=== PATIENT | male | born 1945 | race Caucasian/White ===

== ENCOUNTER → 2023-10-07 07:32 | Outpatient (REF) | payer OTHER, SELFPAY ==
[2023-10-07 08:49] LABS: Glycohemoglobin (HgbA1c) 5.3 % (4.0-5.6)
[2023-10-07 08:57] LABS: ALT (SGPT) 23 U/L (0-50); AST (SGOT) 29 U/L (17-59); Alkaline Phosphatase 66 U/L (38-126); Blood Urea Nitrogen 34 mg/dl (9-20); Calcium 9.8 mg/dl (8.4-10.2); Carbon Dioxide 26 mmol/L (22-30); Chloride 109 mmol/L (98-107); Glucose 92 mg/dl (70-99); HDL Cholesterol 29 mg/dl; LDL Cholesterol, Calculated 53 mg/dl; Potassium 4.7 mmol/L (3.5-5.1); Sodium 141 mmol/L (135-145); Total Bilirubin 0.8 mg/dl (0.2-1.3); Total Cholesterol 105 mg/dl (50-199); Total Protein 6.7 g/dl (6.3-8.2); Triglyceride 118 mg/dl (10-149); Very Low Density Lipoprotein 23 mg/dl (0-30); eGFR 31.43
[2023-10-07 11:23] LABS: Free T4 1.54 ng/dl (0.78-2.19)
== END ==
LOC: REG 07:32
PROVIDERS: ATTENDING PHYSICIAN Internal Medicine
DX: I10 Essential (primary) hypertension (principal); E66.01 Morbid (severe) obesity due to excess calories; E11.22 Type 2 diabetes mellitus with diabetic chronic kidney disease; E03.9 Hypothyroidism, unspecified
CPT/HCPCS: 36415; 80053; 80061; 83036; 84439; 84443

== ENCOUNTER → 2023-12-02 11:20 | Outpatient (REF) | payer OTHER, SELFPAY ==
[2023-12-02 13:10] LABS: TSH Reflex To Free T4 0.48 uIU/ml (0.47-4.68)
== END ==
LOC: REG 11:20
PROVIDERS: ATTENDING PHYSICIAN Internal Medicine
DX: E78.2 Mixed hyperlipidemia (principal); E11.22 Type 2 diabetes mellitus with diabetic chronic kidney disease
CPT/HCPCS: 36415; 84443

== ENCOUNTER → 2024-01-13 11:57 | Outpatient (REF) | payer OTHER, SELFPAY ==
[2024-01-13 13:42] LABS: % Basophils 0.5 % (0-2); % Eosinophils 4.2 % (0-6); % Immature Granulocytes 0.3 % (0-0.5); % Lymphocytes 19.3 % (20.5-51.1); % Neutrophils 68.7 % (42.2-75.2); Absolute Eosinophils 0.3 10^3/uL (0-0.7); Absolute Lymphocytes 1.2 10^3/uL (1.2-3.4); Absolute Monocytes 0.4 10^3/uL (0.1-0.6); Absolute Neutrophils 4.1 10^3/uL (1.4-6.5); Hematocrit 32.4 % (39.0-52.0); Hemoglobin 11.1 g/dL (13.0-18.0); Mean Corp Hgb Conc. 34.3 g/dL (33.0-37.0); Mean Corpuscular Hgb 30.7 pg (27.0-31.0); Mean Corpuscular Volume 89.8 fL (80.0-94.0); Mean Platelet Volume 9.9 fL (7.4-10.4); Nucleated Red Blood Cells % 0 % (-); Platelet Count 157 10^3/uL (130-400); Red Blood Cell Count 3.61 10^6/uL (4.70-6.10); Red Cell Dist. Width 13.5 % (11.5-14.5)
[2024-01-13 14:18] LABS: ALT (SGPT) 22 U/L (0-50); AST (SGOT) 30 U/L (17-59); Albumin 4.1 g/dl (3.5-5.0); Alkaline Phosphatase 71 U/L (38-126); Blood Urea Nitrogen 37 mg/dl (9-20); Calcium 10.1 mg/dl (8.4-10.2); Carbon Dioxide 29 mmol/L (22-30); Chloride 106 mmol/L (98-107); Glucose 92 mg/dl (70-99); HDL Cholesterol 33 mg/dl; LDL Cholesterol, Calculated 58 mg/dl; Potassium 5.4 mmol/L (3.5-5.1); Sodium 140 mmol/L (135-145); Total Bilirubin 0.7 mg/dl (0.2-1.3); Total Cholesterol 107 mg/dl (50-199); Total Protein 6.6 g/dl (6.3-8.2); Triglyceride 83 mg/dl (10-149); Very Low Density Lipoprotein 16 mg/dl (0-30); eGFR 29.72
[2024-01-13 14:36] LABS: Glycohemoglobin (HgbA1c) 5.1 % (4.0-5.6)
[2024-01-13 14:46] LABS: PSA, Total - Screen 3.86 ng/ml (0.0-4.0); TSH Reflex To Free T4 0.64 uIU/ml (0.47-4.68)
== END ==
LOC: REG 11:57
PROVIDERS: ATTENDING PHYSICIAN Internal Medicine; REFERRING PHYSICIAN Internal Medicine Cardiovascular Disease
DX: I10 Essential (primary) hypertension (principal); E78.2 Mixed hyperlipidemia; E11.22 Type 2 diabetes mellitus with diabetic chronic kidney disease; Z12.5 Encounter for screening for malignant neoplasm of prostate
CPT/HCPCS: 36415; 80053; 80061; 83036; 84443; 85025; G0103

== ENCOUNTER → 2024-02-18 10:31 | Outpatient (REF) | payer OTHER, SELFPAY ==
[2024-02-18 11:40] LABS: % Basophils 0.6 % (0-2); % Eosinophils 3.8 % (0-6); % Immature Granulocytes 0.5 % (0-0.5); % Lymphocytes 16.7 % (20.5-51.1); % Monocytes 7.1 % (1.7-9.3); % Neutrophils 71.3 % (42.2-75.2); Absolute Eosinophils 0.2 10^3/uL (0-0.7); Absolute Lymphocytes 1.1 10^3/uL (1.2-3.4); Absolute Monocytes 0.5 10^3/uL (0.1-0.6); Absolute Neutrophils 4.5 10^3/uL (1.4-6.5); Hematocrit 32.6 % (39.0-52.0); Hemoglobin 10.9 g/dL (13.0-18.0); Mean Corp Hgb Conc. 33.4 g/dL (33.0-37.0); Mean Corpuscular Hgb 30.5 pg (27.0-31.0); Mean Corpuscular Volume 91.3 fL (80.0-94.0); Mean Platelet Volume 9.6 fL (7.4-10.4); Nucleated Red Blood Cells % 0 % (-); Platelet Count 155 10^3/uL (130-400); Red Blood Cell Count 3.57 10^6/uL (4.70-6.10); Red Cell Dist. Width 13.7 % (11.5-14.5); White Blood Cell Count 6.3 10^3/uL (4.8-10.8)
[2024-02-18 12:28] LABS: Iron 62 ug/dl (49-181)
[2024-02-18 12:37] LABS: Percent Saturation 21 % (20-50); Total Iron Binding Capacity 291 ug/dl (261-462)
[2024-02-18 16:38] LABS: Ferritin 61.3 ng/ml (17.9-464.0)
[2024-02-18 17:09] LABS: Folate > 20.0 ng/ml (2.76-20); Vitamin B12 959 pg/ml (239-931)
[2024-02-21 00:03] LABS: Erythropoietin (EPO) 11 mU/mL (4-27)
== END ==
LOC: REG 10:31
PROVIDERS: ATTENDING PHYSICIAN Internal Medicine
DX: N18.32 Chronic kidney disease, stage 3b (principal); D64.9 Anemia, unspecified; Z00.00 Encounter for general adult medical examination without abnormal findings
CPT/HCPCS: 36415; 82607; 82668; 82728; 82746; 83540; 83550; 85025

== ENCOUNTER → 2024-04-07 09:19 | Outpatient (REF) | payer OTHER, SELFPAY | LOC: RAD 09:19 | PROVIDERS: ATTENDING PHYSICIAN Specialist; FAMILY PHYSICIAN Internal Medicine | DX: N18.4 Chronic kidney disease, stage 4 (severe) (principal) | CPT/HCPCS: 76770 ==

== ENCOUNTER → 2024-04-12 10:36 | Outpatient (REF) | payer OTHER, SELFPAY ==
[2024-04-12 11:20] LABS: % Basophils 0.4 % (0-2); % Eosinophils 3.9 % (0-6); % Immature Granulocytes 0.4 % (0-0.5); % Monocytes 6.5 % (1.7-9.3); % Neutrophils 70.8 % (42.2-75.2); Absolute Eosinophils 0.2 10^3/uL (0-0.7); Absolute Lymphocytes 0.8 10^3/uL (1.2-3.4); Absolute Monocytes 0.3 10^3/uL (0.1-0.6); Absolute Neutrophils 3.3 10^3/uL (1.4-6.5); Hemoglobin 11.2 g/dL (13.0-18.0); Mean Corp Hgb Conc. 33.9 g/dL (33.0-37.0); Mean Corpuscular Hgb 31.9 pg (27.0-31.0); Mean Platelet Volume 9.5 fL (7.4-10.4); Nucleated Red Blood Cells % 0 % (-); Platelet Count 141 10^3/uL (130-400); Red Blood Cell Count 3.51 10^6/uL (4.70-6.10); Red Cell Dist. Width 13.4 % (11.5-14.5); White Blood Cell Count 4.6 10^3/uL (4.8-10.8)
[2024-04-12 12:03] LABS: ALT (SGPT) 29 U/L (0-50); AST (SGOT) 33 U/L (17-59); Albumin 4.1 g/dl (3.5-5.0); Alkaline Phosphatase 56 U/L (38-126); Blood Urea Nitrogen 30 mg/dl (9-20); Calcium 9.9 mg/dl (8.4-10.2); Carbon Dioxide 27 mmol/L (22-30); Chloride 107 mmol/L (98-107); Glucose 89 mg/dl (70-99); HDL Cholesterol 32 mg/dl; LDL Cholesterol, Calculated 64 mg/dl; Phosphorus 3.8 mg/dl (2.5-4.5); Potassium 4.9 mmol/L (3.5-5.1); Sodium 144 mmol/L (135-145); Total Bilirubin 0.8 mg/dl (0.2-1.3); Total Cholesterol 113 mg/dl (50-199); Total Protein 6.6 g/dl (6.3-8.2); Triglyceride 85 mg/dl (10-149); Uric Acid 7.4 mg/dl (3.5-8.5); Very Low Density Lipoprotein 17 mg/dl (0-30); eGFR 33.32
[2024-04-12 13:49] LABS: Protein/creatinine Ratio 0.1; Urine Protein 8 mg/dl
[2024-04-12 13:54] LABS: Microalbumin, Random Urine 3.4 mg/dl (0.6-1.7); Microalbumin/creatinine Ratio 33.8 mg/g
[2024-04-13 23:37] LABS: ANA, IgG Reflex to HEp-2 None Detected (None Detected)
[2024-04-14 10:32] LABS: Arsenic, Blood <10.0 ug/L (<=12.0); Lead - Venous <2.0 ug/dL (<=4.9); Mercury, Blood <2.5 ug/L (<=10.0)
[2024-04-14 15:06] LABS: Angiotensin-1-converting Enzym 42 U/L (16-85)
[2024-04-14 21:46] LABS: 24 Hour Urine Total Volume Random mL; Urine Collection Length Random hr; Urine Free Kappa Light Chains 47.13 mg/L (0.00-32.90); Urine Free Lambda Light Chains 6.12 mg/L (0.00-3.79)
== END ==
LOC: REG 10:36
PROVIDERS: ATTENDING PHYSICIAN Specialist; FAMILY PHYSICIAN Internal Medicine
DX: N18.4 Chronic kidney disease, stage 4 (severe) (principal); R78.2 Finding of cocaine in blood; I10 Essential (primary) hypertension; E11.22 Type 2 diabetes mellitus with diabetic chronic kidney disease
CPT/HCPCS: 36415; 80053; 80061; 82043; 82164; 82175; 82570; 83036; 83521; 83655; 83825; 83970; 84100; 84155; 84156; 84165; 84550; 85025; 86038; 86335

== ENCOUNTER → 2024-05-10 13:11 | Outpatient (REF) | payer OTHER, SELFPAY ==
[2024-05-10 15:18] LABS: Blood Urea Nitrogen 35 mg/dl (9-20); Calcium 9.7 mg/dl (8.4-10.2); Carbon Dioxide 28 mmol/L (22-30); Chloride 105 mmol/L (98-107); Glucose 83 mg/dl (70-99); Potassium 5.2 mmol/L (3.5-5.1); Sodium 143 mmol/L (135-145); eGFR 28.18
== END ==
LOC: REG 13:11
PROVIDERS: ATTENDING PHYSICIAN Specialist
DX: N18.4 Chronic kidney disease, stage 4 (severe) (principal)
CPT/HCPCS: 36415; 80048

== ENCOUNTER → 2024-05-23 11:09 | Outpatient (REF) | payer OTHER, SELFPAY ==
[2024-05-23 13:36] LABS: Blood Urea Nitrogen 35 mg/dl (9-20); Calcium 9.5 mg/dl (8.4-10.2); Carbon Dioxide 27 mmol/L (22-30); Chloride 108 mmol/L (98-107); Glucose 91 mg/dl (70-99); Potassium 5.2 mmol/L (3.5-5.1); Sodium 145 mmol/L (135-145); eGFR 29.72
== END ==
LOC: REG 11:09
PROVIDERS: ATTENDING PHYSICIAN Specialist; FAMILY PHYSICIAN Internal Medicine
DX: N18.32 Chronic kidney disease, stage 3b (principal); I10 Essential (primary) hypertension; E87.5 Hyperkalemia
CPT/HCPCS: 36415; 80048

== ENCOUNTER → 2024-06-27 09:25 | Outpatient (REF) | payer OTHER, SELFPAY ==
[2024-06-27 10:17] LABS: % Basophils 0.1 % (0-2); % Immature Granulocytes 0.3 % (0-0.5); % Lymphocytes 11.7 % (20.5-51.1); % Monocytes 2.7 % (1.7-9.3); % Neutrophils 85.2 % (42.2-75.2); Absolute Lymphocytes 0.8 10^3/uL (1.2-3.4); Absolute Monocytes 0.2 10^3/uL (0.1-0.6); Absolute Neutrophils 5.8 10^3/uL (1.4-6.5); Hematocrit 36.9 % (39.0-52.0); Hemoglobin 12.3 g/dL (13.0-18.0); Mean Corp Hgb Conc. 33.3 g/dL (33.0-37.0); Mean Corpuscular Hgb 30.7 pg (27.0-31.0); Mean Platelet Volume 10.2 fL (7.4-10.4); Nucleated Red Blood Cells % 0 % (-); Platelet Count 118 10^3/uL (130-400); Red Blood Cell Count 4.01 10^6/uL (4.70-6.10); Red Cell Dist. Width 14.1 % (11.5-14.5); White Blood Cell Count 6.8 10^3/uL (4.8-10.8)
[2024-06-27 10:39] LABS: ALT (SGPT) 40 U/L (0-50); AST (SGOT) 29 U/L (17-59); Albumin 3.9 g/dl (3.5-5.0); Alkaline Phosphatase 54 U/L (38-126); Blood Urea Nitrogen 41 mg/dl (9-20); Calcium 9.5 mg/dl (8.4-10.2); Carbon Dioxide 26 mmol/L (22-30); Chloride 103 mmol/L (98-107); Glucose 120 mg/dl (70-99); Potassium 5.2 mmol/L (3.5-5.1); Sodium 139 mmol/L (135-145); Total Bilirubin 0.9 mg/dl (0.2-1.3); Total Protein 6.6 g/dl (6.3-8.2); eGFR 29.54
[2024-06-27 11:06] LABS: Hepatitis B Surface Antigen Negative (Negative)
[2024-06-29 18:58] LABS: Quantiferon Mitogen minus NIL 9.99 IU/mL; Quantiferon NIL 0.01 IU/mL; Quantiferon TB Gold Plus Negative (Negative)
== END ==
LOC: REG 09:25
PROVIDERS: FAMILY PHYSICIAN Internal Medicine; OTHER PHYSICIAN Internal Medicine Cardiovascular Disease; REFERRING PHYSICIAN Specialist
DX: L12.0 Bullous pemphigoid (principal)
CPT/HCPCS: 36415; 80053; 83735; 85025; 86480; 87340

== ENCOUNTER → 2024-08-09 08:13 | Outpatient (REF) | payer BC, SELFPAY ==
[2024-08-09 09:17] LABS: % Basophils 0.3 % (0-2); % Eosinophils 0.4 % (0-6); % Lymphocytes 11.6 % (20.5-51.1); % Neutrophils 77.7 % (42.2-75.2); Absolute Immature Granulocytes 0.4 10^3/uL (0-0.05); Absolute Lymphocytes 1.1 10^3/uL (1.2-3.4); Absolute Monocytes 0.6 10^3/uL (0.1-0.6); Absolute Neutrophils 7.4 10^3/uL (1.4-6.5); Hematocrit 32.9 % (39.0-52.0); Hemoglobin 11.1 g/dL (13.0-18.0); Mean Corp Hgb Conc. 33.7 g/dL (33.0-37.0); Mean Corpuscular Hgb 31.5 pg (27.0-31.0); Mean Corpuscular Volume 93.5 fL (80.0-94.0); Mean Platelet Volume 9.8 fL (7.4-10.4); Nucleated Red Blood Cells % 0 % (-); Platelet Count 168 10^3/uL (130-400); Red Blood Cell Count 3.52 10^6/uL (4.70-6.10); White Blood Cell Count 9.5 10^3/uL (4.8-10.8)
[2024-08-09 09:52] LABS: ALT (SGPT) 23 U/L (0-50); AST (SGOT) 22 U/L (17-59); Alkaline Phosphatase 71 U/L (38-126); Blood Urea Nitrogen 42 mg/dl (9-20); Calcium 9.4 mg/dl (8.4-10.2); Carbon Dioxide 26 mmol/L (22-30); Chloride 104 mmol/L (98-107); Glucose 94 mg/dl (70-99); HDL Cholesterol 56 mg/dl; LDL Cholesterol, Calculated 82 mg/dl; Magnesium 1.9 mg/dl (1.6-2.3); Potassium 4.8 mmol/L (3.5-5.1); Sodium 141 mmol/L (135-145); Total Bilirubin 0.9 mg/dl (0.2-1.3); Total Cholesterol 153 mg/dl (50-199); Total Protein 6.2 g/dl (6.3-8.2); Triglyceride 76 mg/dl (10-149); Very Low Density Lipoprotein 15 mg/dl (0-30); eGFR 33.12
[2024-08-09 10:57] LABS: Glycohemoglobin (HgbA1c) 5.6 % (4.0-5.6)
== END ==
LOC: REG 08:13
PROVIDERS: ATTENDING PHYSICIAN Internal Medicine; REFERRING PHYSICIAN Dermatology
DX: I10 Essential (primary) hypertension (principal); E78.2 Mixed hyperlipidemia; E11.22 Type 2 diabetes mellitus with diabetic chronic kidney disease; L12.0 Bullous pemphigoid
CPT/HCPCS: 36415; 80053; 80061; 83036; 83735; 85025

== ENCOUNTER 2024-08-23 20:56 | Inpatient (IN) | payer BC, SELFPAY ==
[2024-08-23] VITALS (15 sets, daily range): BP systolic 115–175; BP diastolic 63–100
[2024-08-23 10:50] LABS: % Basophils 0.4 % (0-2); % Immature Granulocytes 0.9 % (0-0.5); % Lymphocytes 14.9 % (20.5-51.1); % Monocytes 7.1 % (1.7-9.3); % Neutrophils 72.7 % (42.2-75.2); Absolute Eosinophils 0.2 10^3/uL (0-0.7); Absolute Immature Granulocytes 0.1 10^3/uL (0-0.05); Absolute Lymphocytes 0.8 10^3/uL (1.2-3.4); Absolute Monocytes 0.4 10^3/uL (0.1-0.6); Hematocrit 32.9 % (39.0-52.0); Hemoglobin 10.9 g/dL (13.0-18.0); Mean Corp Hgb Conc. 33.1 g/dL (33.0-37.0); Mean Corpuscular Hgb 31.6 pg (27.0-31.0); Mean Corpuscular Volume 95.4 fL (80.0-94.0); Mean Platelet Volume 9.5 fL (7.4-10.4); Nucleated Red Blood Cells % 0 % (-); Platelet Count 120 10^3/uL (130-400); Red Blood Cell Count 3.45 10^6/uL (4.70-6.10); Red Cell Dist. Width 15.2 % (11.5-14.5); White Blood Cell Count 5.5 10^3/uL (4.8-10.8)
[2024-08-23 11:04] LABS: ALT (SGPT) 21 U/L (0-50); AST (SGOT) 24 U/L (17-59); Albumin 3.5 g/dl (3.5-5.0); Alkaline Phosphatase 50 U/L (38-126); Blood Urea Nitrogen 24 mg/dl (9-20); Calcium 9.5 mg/dl (8.4-10.2); Carbon Dioxide 30 mmol/L (22-30); Chloride 106 mmol/L (98-107); Glucose 92 mg/dl (70-99); Potassium 5.2 mmol/L (3.5-5.1); Sodium 140 mmol/L (135-145); Total Bilirubin 1.3 mg/dl (0.2-1.3); Total Protein 5.6 g/dl (6.3-8.2); eGFR 37.58
[2024-08-23 11:16] LABS: NT-proBNP 68.5 pg/ml; Troponin I 0.049 ng/ml
[2024-08-23] MEDS: LOW STRENGTH ASPIRIN 324 MG PO (11:17)
--- NOTE | 2024-08-23 11:25 | ED.GENMED ---
History of Present Illness
General
Chief Complaint: Chest Problem
Source: patient
Time Seen by Provider: 08/23/24 10:40
History of Present Illness
History of Present Illness:
79-year-old male with past medical history of coronary artery disease status post 7 cardiac stents, hypertension, hyperlipidemia, GERD, hypothyroidism, JEFF presenting to the emergency department for evaluation after about 1 month ago he started
experiencing intermittent exertional angina, symptoms seem to have resolved however over the last week or so symptoms seem to be more prevalent and over the last 1 to 2 days notes now with any exertion even minimally he is experiencing the chest
discomfort. Patient states that the discomfort only last for as long as he is active and then resolves after a few minutes of being sedentary. No other associated symptoms with the chest pressure. Currently at time of my exam patient is
symptom-free. Patient does note he takes both aspirin and Plavix and reports good compliance with this. Patient follows with electrocardiograph technician, Dr. Grimes.
Past History
Past History
ED Past Medical History: CAD, GERD, HTN, Hypercholesterolemia, Hypothyroidism and Other
ED Past Surgical History: Cardiac and Orthopedic
Social History
Tobacco: Non-smoker
Alcohol: None
Drug: None
Personal:
Living: with family
Employment: Employed
Family History
Family History: Other (Noncontributory)
Review of Systems
Review of Systems
All Other Systems: ROS reviewed and negative except as documented in HPI and ROS
Phy Exam
Physical Exam
Physical Exam:
GENERAL: Alert , in no apparent distress
EYE: conjunctiva clear
NECK: Supple
ENT: o/p clr, mmm.
CARDIAC: Regular rate and rhythm, systolic murmur along the left second intercostal space
LUNGS: Clear breath sounds bilaterally, no acute respiratory distress, no wheezes/rales/rhonchi
NEUROLOGICAL: Alert and oriented
SKIN: Warm and dry, skin intact.
MUSCULOSKELETAL: well perfused.
PSYCH: Normal and appropriate interaction.
Scores
Heart Failure Risk
Heart Failure Risk Score: Not Applicable
Heart Score for Chest Pain Patients
STEMI patient?: No
History: Moderately Suspicious
ECG: Nonspecific Repolarization
Age: >/= 65 years
Risk Factors: >/= 3 Risk Factors or History of CAD
Troponin: </= Normal Limit
Heart Score for Chest Pain Patients: 6
Heart Score Risk: 20.3% MACE over next 6 weeks
Withdrawal Assessment of Alcohol
Withdrawal Assessment Completed?: Not applicable
Course
Orders/Labs/Results
Orders:
Orders
08/23/24 10:06
Electrocardiogram (*1) Urgent
Reason for Study: Chest Pain
EKG- Treatment ONCE
08/23/24 10:35
Complete Blood Count/With Diff Urgent
Comprehensive Metabolic Panel Urgent
Pro-BNP [NT-proBNP] Urgent
Troponin I Urgent
08/23/24 11:05
Aspirin Chewable [Low Strength Aspirin] 324 mg PO NOW STA
08/23/24 12:[address] See Dose Instructions PO NOW STA
Discontinue all Active Warfarin orders?: Yes
Heparin Protocol- PTT Orders As Directed
PTT per Heparin protocol: -Obtain CBC and baseline PTT - if not already collected.
-Obtain PTT 6 hours from start of infusion. Then, every 6 hours until 2 consecutive
PTT's are therapeutic. Then, PTT Daily.
-With each rate change, obtain PTT every 6 hours until 2 consecutive PTT's are
therapeutic. Then, PTT Daily.
Notify MD As Directed
Notify physician if: PTT is greater than or equal to 200.
08/23/24 13:00
Heparin 10850 Units/250 ml 25,000 units in 250 ml IV PER PROTOCOL
Weight to be used for heparin protocol in kilograms (kg):: 136
Protocol:: Cardiac Tx/Acute Coronary
PTT Goal Range to be used:: PTT 73 to 111 seconds
Order type:: Initial
INITIAL Infusion Dose (UNITS/KG/hr) & then follow protocol:: 12 units/kg/hr
Infusion Dose in UNITS/hr & then follow protocol (UNITS/hr):: 1,000
INFUSION RATE in mL/hr & then follow protocol (mL/hr):: 10
PTT less than or equal to 64 seconds:: Increase rate by 200 units/hr (+ 2 mL/hr)
PTT 64.1 to 72.9 seconds:: Increase rate by 100 units/hr (+ 1 mL/hr)
PTT 73 to 111 seconds:: Target Range. No change in rate.
PTT 111.1 to 130.9 seconds:: Decrease rate by 100 units/hr (- 1 mL/hr)
PTT 131 to 199.9 seconds:: HOLD for 1 hr. Then decrease rate by 200 units/hr (- 2 mL/hr)
PTT greater than or equal to 200 seconds:: HOLD for 2 hrs & Notify Provider. Then decrease by 200 units/hr (-
2 mL/hr)
Lab follow-up:: Each change, PTT q6h until 2 consecutive are therapeutic. Then PTT
daily.
Pharmacy Request to Place See Dose Instructions IV DIRECTED
08/23/24 13:07
PTT Urgent
Comment: Obtain baseline before beginning heparin infusion if not already collected
Carvedilol [Coreg] 12.5 mg PO NOW STA
08/23/24 19:20
PTT Urgent
08/25/24 06:00
Complete Blood Count/No Diff Q2D
Comment: Notify MD if platelet count is <130,000 or decreases by 50% from baseline
08/27/24 06:00
Complete Blood Count/No Diff Q2D
Comment: Notify MD if platelet count is <130,000 or decreases by 50% from baseline
08/29/24 06:00
Complete Blood Count/No Diff Q2D
Comment: Notify MD if platelet count is <130,000 or decreases by 50% from baseline
08/31/24 06:00
Complete Blood Count/No Diff Q2D
Comment: Notify MD if platelet count is <130,000 or decreases by 50% from baseline
09/02/24 06:00
Complete Blood Count/No Diff Q2D
Comment: Notify MD if platelet count is <130,000 or decreases by 50% from baseline
09/04/24 06:00
Complete Blood Count/No Diff Q2D
Comment: Notify MD if platelet count is <130,000 or decreases by 50% from baseline
09/06/24 06:00
Complete Blood Count/No Diff Q2D
Comment: Notify MD if platelet count is <130,000 or decreases by 50% from baseline
09/08/24 06:00
Complete Blood Count/No Diff Q2D
Comment: Notify MD if platelet count is <130,000 or decreases by 50% from baseline
Abnormal Lab Results
08/23/24
10:35
RBC 3.45 L 10^6/uL
(4.70-6.10)
Hgb 10.9 L g/dL
(13.0-18.0)
Hct 32.9 L %
(39.0-52.0)
MCV 95.4 H fL
(80.0-94.0)
MCH 31.6 H pg
(27.0-31.0)
RDW 15.2 H %
(11.5-14.5)
Plt Count 120 L 10^3/uL
(130-400)
Abs Immat Gran (auto) 0.1 H 10^3/uL
(0-0.05)
Absolute Lymphs (auto) 0.8 L 10^3/uL
(1.2-3.4)
Immature Gran % 0.9 H %
(0-0.5)
Lymphocytes % 14.9 L %
(20.5-51.1)
Potassium 5.2 H mmol/L
(3.5-5.1)
BUN 24 H mg/dl
(9-20)
Creatinine 1.8 H mg/dL
(0.7-1.3)
Troponin I 0.049 H* ng/ml
Total Protein 5.6 L g/dl
(6.3-8.2)
08/23/24 10:35
08/23/24 10:35
Vital Signs
Initial and Last Documented VS:
Initial Vital Signs
Temp Pulse Resp BP Pulse Ox
98.4 F 73 18 154/93 100
08/23/24 10:06 08/23/24 10:06 08/23/24 10:06 08/23/24 10:06 08/23/24 10:06
Last Documented Vital Signs
Temp Pulse Resp BP Pulse Ox
98.4 F 68 8 149/78 98
08/23/24 10:06 08/23/24 13:45 08/23/24 13:30 08/23/24 13:17 08/23/24 13:45
MDM/Problems Addressed
Differential Diagnosis Includes:
Stable versus unstable angina, NSTEMI, currently does not meet criteria for STEMI, PE considered given recent travel however given lack of other symptoms I have more suspicion that patient's symptoms are likely cardiac in nature
MDM/Problems Addressed:
79-year-old male presented to the ER for evaluation of exertional chest pressure/discomfort for the last month or so, acutely worse over the last 1 to 2 days. Symptom-free presently. EKG done in triage is without acute ischemic changes. Labs
ordered. Plan to discuss case with cardiology for ultimate disposition planning as I have high degree of suspicion for stable angina in a patient who already has 7 cardiac stents and has significant cardiac disease. Patient advised that if he is
to develop any chest discomfort while in the ER that he needs to notify staff.
Chronic conditions affecting care: CAD
Acute Exacerbation and/or Progression of Chronic Illness: CAD
*Pulse Oximetry
Patient hypoxic: no
*EKG
Heart Rate: 68
Rate: normal
Rhythm: sinus
[place]: left axis deviation
Ischemia: no ischemia
*Groundskeeping Maintenance Worker Interpretation
Rate: normal
Rhythm: sinus
*Critical Care Note
Total Time (30-74mins, 75-104mins- exclusive of procedures): Not Applicable
Data Reviewed
Review of Other/Old Records Reveals: Labs
Source: patient
Patient Management
Discussion with other providers: Psychiatric Orderly
Escalation/DeEscalation of care consider admission/obs:
Cardiology to take patient to the [facility] today. They are ordering heparin. They will admit to their service for further treatment.
ED Attending Note
-
Portions of this chart may have been created with voice recognition software.� Occasional wrong word or��sound alike� substitutions may have occurred due to the inherent limitations of voice recognition software.
Discharge Plan
Departure
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
Date of Disposition: 08/23/24
Time of Disposition: 13:01
Presentation/result/management discussed w/ accepting MD/DO: Dr. Lauren
Discharge Problem:
Angina pectoris
Prescriptions:
No Action
pantoprazole 40 MG tablet,delayed release (DR/EC)
40 mg PO HS
atorvastatin 80 MG tablet
80 mg PO HS
sennosides [senna] 1 TABLET tablet
1 tab PO DAILYPRN PRN (Reason: constipation)
clopidogrel 75 MG tablet
75 mg PO DAILY
aspirin 81 MG tablet,delayed release (DR/EC)
81 mg PO HS
acetaminophen [Tylenol Arthritis] 650 MG tablet extended release
1,300 mg PO BID
loratadine-pseudoephedrine 240 MG/10 MG tablet extended release 24 hr
1 tab PO DAILYPRN PRN (Reason: congestion)
tamsulosin 0.4 MG capsule
0.4 mg PO BID
ezetimibe 10 MG tablet
10 mg PO HS
potassium citrate 10 MEQ tablet extended release
10 meq PO DAILY
Rx Instructions:
with meal
carvedilol 12.5 mg Tablet
12.5 mg PO BID
Theragen Tablet
1 tab PO DAILY
triamcinolone acetonide 0.1 % Cream
1 applic TOPICAL BIDPRN PRN (Reason: rash)
mycophenolate mofetil 500 mg Tablet
1,000 mg PO BID
levothyroxine 150 mcg Tablet
150 mcg PO MOTUWETHFRSA
betamethasone dipropionate 0.05 % Cream
1 applic TOPICAL BID PRN (Reason: flare up)
omega 5-efz-mbu-fish oil [Fish Oil] 60-90-500 mg Capsule
1 cap PO BID
Ozempic 1 mg/dose (4 mg/3 mL) Pen Injector
1 mg SC FUENTES
Referrals:
Micheal Aggarwal I., DO [Family Provider] -
Interventions
Interventions:
*Risk Screen - Suicide Last Done: 08/23/24 10:06
*General Assessment Last Done: 08/23/24 10:06
*Neglect/Abuse Screening Last Done: 08/23/24 10:06
ED- Fall Risk Assessment Last Done: 08/23/24 11:55
*ED COVID-19 Vaccine History Last Done: 08/23/24 11:55
ED- Cardiac Assessment Last Done: 08/23/24 11:55
ED- Pulmonary Assessment Last Done: 08/23/24 11:55
Discharge Date and Time
Print Language: HUNGARIAN
--- NOTE | 2024-08-23 12:40 | CON.CAR ---
Addendum entered and electronically signed by Roderick Lauren MD 08/23/24 14:55:
I saw and examined the patient.
The Tow Motor Mechanic's note was reviewed and I agree with the note.
Comment:
GEN: No distress, awake, Ox3
HEENT: supple, anicteric, mmm
LUNGS: CTA, no wheezes/rales
CV: Reg, S1/S2, 1/6 syst LSB, no gallop
ABD: soft, BS+, NT/ND
EXT: No edema
NEURO: Gross non-focal
SKIN: No rash
PLan:
79-year-old male well-known to me with past medical history of multivessel stenting of his OM1, and LAD presents with chest pains. His last PCI was in 2019 with a PCI of the mid circumflex into OM1. He takes chronic dual antiplatelet therapy with
aspirin and Plavix. He also has a past medical history of CKD 3, hypertension, hyperlipidemia, diabetes, and obesity. He states that over the past month he has had esculin any exertional chest tightness in the center of his chest. It radiates up
into his shoulder. Over the past several days these pains have worsened to where minimal activity caused significant chest discomfort. EKG in the emergency room revealed sinus rhythm with nonspecific T wave abnormalities. Initial troponin was
0.049. He is pain-free. He has no bleeding. He was recently diagnosed with bullous pemphigoid and was treated with intermittent steroids over the past several months.
He presents with unstable angina/non-STEMI. Start IV heparin. Continue aspirin and Plavix.
Will proceed with cardiac catheterization to evaluate his known CAD.
Continue atorvastatin, Zetia, and carvedilol.
Continue Ozempic for his diabetes.
Creatinine is overall improved at 1.8. Will continue to follow. Will attempt to limit contrast during catheterization if possible. Potassium is borderline elevated at 5.2. Continue to follow. He has had some borderline elevated potassium in the
past.
Check echocardiogram.
Original Note:
Consultation
Consultation Request
Date/Time Consultation Requested: 08/23/24
Date/Time Consultation Performed: 08/23/24
Requesting Provider: RICHARD Morse in ER
Performing Provider: Dr. Lauren
Reason for Consultation: ACS, NSTEMI
Medical History
-
History of Present Illness:
Patient came to ER today with complaints of chest pain and his initial troponin was elevated so cardiology was consulted in the ER. Patient lives about an hour away, but has had all of his previous cardiology care here at [facility] and still
insist on driving to to see his PCP and his dancing instructor. Patient says that starting 1 month ago he was on a cruise and they were on an excursion where he was carrying a backpack up a steep hill and he started with pressure in his chest that
improved with rest. When he returned home from the trip he had other episodes of higher levels of exertion causing the same chest pressure that was again relieved by rest. Concerningly however, in the last couple of days he has been having the
same chest pressure with walking on a flat surface and not associated with any heavy lifting. He called our answering service today to state that he was going to take himself to ER for an evaluation. Patient had chest pain walking from his car
to the waiting room and again walking from the waiting room to the ER room. His initial troponin was 0.049. His ECG is SR without acute ST changes. He is pain-free at rest currently.
PMH:
CAD
s/p PCI of OM1 with 2.5 x 23 mm Cypher stent and 2.8 x 8 mm Cypher stent proximal edge of initial stent, 08/22/04
s/p PCI of mid Circ to OM1 proximal segment with a 3.0 x 15 mm Xience stent for treatment of in-stent restenosis in the OM1 proximally stented area 09/16/09
s/p PCI of distal edge of OM1 with a 3.0x16 mm Promus stent, Diag-1 with a 2.5 x 16 mm Promus stent, and mid LAD with a 3.5 x 17 mm EluNIR stent 10/29/17
s/p PCI of mid Circ into the large OM1 with placement of a 3.5 x 28 mm Promus stent 11/23/19
Chronic DAPT with aspirin and Plavix
CKD 3b, baseline Cre 2.0-2.2
HTN
HLD
hypothyroidism
BPH
obesity
anemia
Past Medical History
Past Medical History: Other (in HPI)
Past Surgical History: Cardiac (s/p OM PCI 2004, OM1/LCx PCI 2009, OM/diag/mid LAD PCI 2017, OM1 x1 BENITO 11/24/19), Orthopedic and Other (thyroid radiation therapy)
Social History
Tobacco: Former Smoker
Alcohol: Occasional
Drug: None
Personal:
Living: With Family
Family History
Family History: Other (CVA)
Allergies / Home Medications
Allergy/AdvReac Type Severity Reaction Status Date / Time
celecoxib [From Celebrex] Allergy facial Verified 08/23/24 10:05
swelling
hydrocodone Allergy facial Verified 08/23/24 10:05
swelling
NSAIDS (Non-Steroidal Allergy Swelling Verified 08/23/24 10:05
Anti-Inflamma
perindopril erbumine Allergy facial Verified 08/23/24 10:05
[From Aceon] swelling
rofecoxib Allergy Patient Verified 08/23/24 10:05
unaware of
this
allergy
Salicylates * Allergy Patient Verified 08/23/24 10:05
unaware of
this
allergy
tramadol Allergy Unknown Verified 08/23/24 10:05
�Medication �Instructions �Recorded �Confirmed �Type
docosahexaenoic acid (dha)-epa 120 2,000 mg PO DAILY Supplement 09/16/09 11/23/19 History
mg-180 mg capsule
pantoprazole 40 mg tablet,delayed 40 mg PO HS Gastrointestinal issue 07/29/11 11/23/19 History
release
acetaminophen 650 mg 1,300 mg PO BID Pain 10/28/17 11/23/19 History
tablet,extended release (Tylenol
Arthritis)
aspirin 81 mg tablet,delayed 81 mg PO HS Blood clot 10/28/17 11/23/19 History
release prevention/tx
atorvastatin 80 mg tablet 80 mg PO HS High cholesterol 10/28/17 11/23/19 History
carvedilol phosphate 40 mg 40 mg PO DAILY Blood pressure 10/28/17 11/23/19 History
capsule,[id number] multiphase
clopidogrel 75 mg tablet 75 mg PO HS Blood clot 10/28/17 11/23/19 History
prevention/tx
levothyroxine 200 mcg tablet 200 mcg PO MOTUWETHFRSA@0700 10/28/17 11/23/19 History
Thyroid
loratadine-pseudoephedrine ER 10 1 tab PO DAILYPRN PRN congestion 10/28/17 11/23/19 History
mg-240 mg tablet,extended
[id number]
sennosides 8.6 mg tablet (senna) 1 tab PO DAILYPRN PRN constipation 10/28/17 11/23/19 History
tamsulosin 0.4 mg capsule 0.4 mg PO BID Urinary issue 10/28/17 11/23/19 History
B-complex with vitamin C 1 cap PO DAILY Supplement 11/23/19 11/23/19 History
ezetimibe 10 mg tablet 10 mg PO HS High cholesterol 11/23/19 11/23/19 History
multivitamin with folic acid 400 1 tab PO DAILY Supplement 11/23/19 11/23/19 History
mcg tablet (Tab-A-Johnathan)
omega 7-xle-fcu-fish oil 300 1 ea PO HS Supplement 11/23/19 11/23/19 History
mg-1,000 mg capsule (Fish Oil)
potassium citrate 10 mEq (1,080 10 meq PO BID electrolyte repletion 11/23/19 11/23/19 History
mg) tablet,extended release
Review of Systems
-
History Source: Patient and Family ()
All other systems: Negative unless noted
Physical Exam
Vital Signs
Temp Pulse Resp BP Pulse Ox
98.4 F 69 11 175/91 99
08/23/24 10:06 08/23/24 11:45 08/23/24 11:45 08/23/24 11:01 08/23/24 11:45
GEN: NAD. AAOx3
HEENT: EOMI, MMM
LUNGS: RA. CTA B/L, no wheeze
CV: SR on tele. Reg, S1/S2, no murmur
ABD: soft, BS+, NT, ND
EXT: +1 B/L LE edema to knees. No clubbing, cyanosis or lesions B/L
NEURO: Gross non-focal
SKIN: Warm, dry and pink. No rash
Lab Results
08/23/24 10:35
08/23/24 10:35
Troponin I 0.049 ng/ml H* 08/23/24 10:35
Wvd-L-Rlcfuubdjde Pept 68.5 pg/ml 08/23/24 10:35
Impression / Plan
-
Primary dancing instructor: Dr. Lauren
PCP: Micheal Aggarwal MD
Impression:
Admitted with chest pain and ACS 08/23/24
NSTEMI, initial Troponin 0.049
CAD
s/p PCI of OM1 with 2.5 x 23 mm Cypher stent and 2.8 x 8 mm Cypher stent proximal edge of initial stent, 08/22/04
s/p PCI of mid Circ to OM1 proximal segment with a 3.0 x 15 mm Xience stent for treatment of in-stent restenosis in the OM1 proximally stented area 09/16/09
s/p PCI of distal edge of OM1 with a 3.0x16 mm Promus stent, Diag-1 with a 2.5 x 16 mm Promus stent, and mid LAD with a 3.5 x 17 mm EluNIR stent 10/29/17
s/p PCI of mid Circ into the large OM1 with placement of a 3.5 x 28 mm Promus stent 11/23/19
Chronic DAPT with aspirin and Plavix
CKD 3b, baseline Cre 2.0-2.2
HTN
HLD
hypothyroidism
BPH
obesity
anemia
Echo 11/16/2019: EF 68%, mild to moderate LVH, stage I diastolic dysfunction, normal RV, mild MR
Plan:
-Patient came to ER today with complaints of chest pain and his initial troponin was elevated so cardiology was consulted in the ER. Patient lives about an hour away, but has had all of his previous cardiology care here at [facility] and still
insist on driving to to see his PCP and his dancing instructor. Patient says that starting 1 month ago he was on a cruise and they were on an excursion where he was carrying a backpack up a steep hill and he started with pressure in his chest that
improved with rest. When he returned home from the trip he had other episodes of higher levels of exertion causing the same chest pressure that was again relieved by rest. Concerningly however, in the last couple of days he has been having the
same chest pressure with walking on a flat surface and not associated with any heavy lifting. He called our answering service today to state that he was going to take himself to ER for an evaluation. Patient had chest pain walking from his car
to the waiting room and again walking from the waiting room to the ER room. His initial troponin was 0.049. His ECG is SR without acute ST changes. He is pain-free at rest currently.
-ECG reviewed by me is NSR without acute ST changes
-Initial troponin 0.049. Based on the patient's PMH, current clinical story and initial troponin of 0.049 this is likely ACS and he will be managed as an NSTEMI.
-Heparin gtt, ordered by me
-Patient took his usual doses of aspirin 81 mg daily and Plavix 75 mg daily at home this morning and reports that upon arrival to ER he was given an additional aspirin 324 mg chewable x 1
-VS reviewed and he has been HTN since arrival, last BP was 175/91. Coreg 12.5 mg x 1 now ordered by me. Patient takes Coreg CR 40 mg daily as an outpatient.
-LDL was 82 on outpatient labs 08/09/2024. Patient reports compliance with his usual dosing of atorvastatin 80 mg daily and Zetia 10 mg daily
-Patient has been using Ozempic for his DM2 and has also been managing to lose some weight. His last dose was Wednesday
[2024-08-23] MEDS: HEPARIN 25000 UNITS/250 ML IV (13:17)
[2024-08-23] MEDS: COREG 12.5 MG PO ×2 (13:17→19:32)
[2024-08-23 13:38] LABS: APTT 27.8 Sec (23.4-35.0)
[2024-08-23 16:20] LABS: ACT-LR - POC 334 Seconds (116-155)
[2024-08-23 16:41] LABS: ACT-LR - POC 253 Seconds (116-155)
[2024-08-23] MEDS: NSS 1000 IV (17:47)
--- NOTE | 2024-08-23 18:14 | ITS.CL.CATH ---
Feed Handler - Catheterization
Cardiac Catheterization
Procedure Report:
LEFT HEART CATHETERIZATION AND CORONARY INTERVENTION
Date of Procedure: August 23, 2024
Referring: Heri Lauren
PROCEDURES:
1. Left heart catheterization, coronary angiogram.
2. Ultrasound-guided access.
3. Successful percutaneous coronary artery intervention of hazy 90% mid RCA stenosis with one 3.5 x 26 mm Medtronic Michael drug-eluting stent, postdilated using IVUS guidance with a 3.5 x 15 mm NC Euphora balloon at 16 emily distally and 20 emily
proximally with an excellent angiographic and IVUS based result.
4. Intravascular ultrasound (IVUS)
INDICATION: Patient is a 79-year-old gentleman with past medical history of hypertension, hyperlipidemia, morbid obesity, CKD stage IIIb, baseline creatinine of 2.0, coronary artery disease with multiple prior stents as noted below who presents
today with NSTEMI.
Prior CAD history
s/p PCI of OM1 with 2.5 x 23 mm Cypher stent and 2.8 x 8 mm Cypher stent proximal edge of initial stent, 08/22/04
s/p PCI of mid Circ to OM1 proximal segment with a 3.0 x 15 mm Xience stent for treatment of in-stent restenosis in the OM1 proximally stented area 09/16/09
s/p PCI of distal edge of OM1 with a 3.0x16 mm Promus stent, Diag-1 with a 2.5 x 16 mm Promus stent, and mid LAD with a 3.5 x 17 mm EluNIR stent 10/29/17
s/p PCI of mid Circ into the large OM1 with placement of a 3.5 x 28 mm Promus stent 11/23/19--Chronic DAPT with aspirin and Plavix
ACCESS: Right radial artery, 6 Portuguese sheath, under ultrasound guidance.
Ultrasound was utilized for vascular access. The radial artery was visualized under ultrasound, and the vessel was patent and pulsatile. An image was stored permanently in the patient's medical record. Under direct ultrasound guidance, a 6 Portuguese
sheath was inserted into the artery using a micropuncture kit through a modified Seldinger technique.
HEMODYNAMICS : (mmHg)
AO (s/d) : 134/84
LV (s/d) : 134/12
LVEDP : 14
CORONARY FINDINGS
DOMINANCE: Right
LEFT MAIN: The left main artery is a large-caliber vessel which gives rise to the left anterior descending artery and the left circumflex artery. There is mild to moderate diffuse atherosclerotic plaque.
LEFT ANTERIOR DESCENDING: The left anterior descending artery is a medium to large caliber vessel which is rise to 2 major diagonal branches as it courses to the anterior interventricular groove and wraps around the apex.
CIRCUMFLEX: The left circumflex artery is a small to medium caliber vessel which gives rise to 1 large caliber obtuse marginal branch. Ostial left circumflex has an eccentric 40% stenosis. OM1 has had multiple prior stents which are widely patent.
Proximal LAD has diffuse 30 to 40% stenosis. Otherwise there is mild diffuse atherosclerotic plaque.
RIGHT CORONARY ARTERY: The right coronary artery is a large-caliber, dominant vessel with a high anterior takeoff which was engaged using a 6 Portuguese AL-1 diagnostic catheter. There is a hazy 90% mid RCA stenosis which is thought to be the culprit
of presenting NSTEMI and was intervened upon as noted below.
CORONARY INTERVENTION: The right coronary artery was selectively engaged using a 6 Portuguese AL-1 guide catheter. Additional heparin was given to maintain a therapeutic ACT throughout the case. A1 80 cm 0.014' run-through coronary wire for
successfully advanced into the RPDA. The mid RCA lesion was predilated using a 3.0 x 15 mm semicompliant balloon at 14 emily with good expansion. The lesion was subsequently stented using a 3.5 x 26 mm Medtronic Alta drug-eluting stent. Using IVUS
[place] eye catheter to help guide postdilatation, the stent was postdilated using a 3.5 x 15 mm NC Euphora balloon at 16 emily distally and 20 emily proximally with an excellent angiographic and IVUS based result. There is no evidence of proximal or
distal stent edge dissections with the stent appearing well apposed and well expanded. Patient tolerated the procedure well. He was reloaded with Plavix at 300 mg at the end of the case. No acute complications.
SEDATION: 52 minutes of procedural sedation was utilized. An independent neuropsychology medical consultant was present to assist with and help manage the patient's level of consciousness and physiologic status.
RADIATION SUMMARY: Fluoro Time (min): 13.1, Dose (mGy): 781.12, DAP (Gy.cm2) : 44.7
Closure Device: Vascular band over right radial artery, 10 cc of air.
CONCLUSIONS
1. Successful percutaneous coronary artery intervention of hazy 90% mid RCA stenosis with one 3.5 x 26 mm Medtronic Michael drug-eluting stent, postdilated using IVUS guidance with a 3.5 x 1518 mm NC Euphora balloon at 16 emily distally and 20 emily
proximally with an excellent angiographic and IVUS based result.
2. High Normal LVEDP at 14 mmHg
RECOMMENDATIONS
1. Uninterrupted dual antiplatelet therapy with daily baby aspirin and Plavix 75 mg along with high intensity statin and beta-dai as tolerated.
2. Wean radioman per protocol.
3. Full echocardiogram to assess biventricular function and rule out any significant valvular abnormalities.
4. Aggressive management of cardiovascular risk factors.
5. Referral for outpatient cardiac rehab.
Copy to: Heri Lauren
Myranda Cotter MD, [facility], [facility]
[2024-08-23] MEDS: CELLCEPT 1000 MG PO (19:32)
[2024-08-23] MEDS: FLOMAX 0.4 MG PO (19:33)
[2024-08-23] MEDS: PROTONIX 40 MG PO (22:20)
[2024-08-23] MEDS: LIPITOR 80 MG PO (22:20)
[2024-08-23] MEDS: TYLENOL 650 MG PO (22:20)
[2024-08-23] MEDS: ZETIA 10 MG PO (22:20)
--- NOTE | 2024-08-23 22:39 | PTCARENOTE ---
Received patient at change of shift. SR on the monitor, HR in the 70s. R radial band removed and dressing applied. Reinforced activity restrictions, pt verbalizes understanding. Pt requested PRN Tylenol, administered as per order, see MAR. Call cortes
within reach.
[2024-08-24 03:49] VITALS: BP 143/79
[2024-08-24 05:43] LABS: Hematocrit 31.2 % (39.0-52.0); Hemoglobin 10.2 g/dL (13.0-18.0); Mean Corp Hgb Conc. 32.7 g/dL (33.0-37.0); Mean Corpuscular Hgb 31.5 pg (27.0-31.0); Mean Corpuscular Volume 96.3 fL (80.0-94.0); Mean Platelet Volume 9.8 fL (7.4-10.4); Platelet Count 114 10^3/uL (130-400); Red Blood Cell Count 3.24 10^6/uL (4.70-6.10); Red Cell Dist. Width 15.2 % (11.5-14.5); White Blood Cell Count 5.5 10^3/uL (4.8-10.8)
[2024-08-24 06:04] LABS: Blood Urea Nitrogen 25 mg/dl (9-20); Carbon Dioxide 24 mmol/L (22-30); Chloride 107 mmol/L (98-107); Estimated Creatinine Clearance 52 ml/min; Glucose 71 mg/dl (70-99); HDL Cholesterol 37 mg/dl; LDL Cholesterol, Calculated 39 mg/dl; Potassium 4.5 mmol/L (3.5-5.1); Sodium 136 mmol/L (135-145); Total Cholesterol 111 mg/dl (50-199); Triglyceride 177 mg/dl (10-149); Very Low Density Lipoprotein 35 mg/dl (0-30); eGFR 40.25
--- NOTE | 2024-08-24 07:38 | W.PN.CARDCBS ---
Addendum entered and electronically signed by Disha Christianson DO 08/24/24 16:57:
I saw and examined the patient.
The Salon Shampoo Assistant's note was reviewed and I agree with the note.
Comment: Patient is seen and examined. He feels well and denies chest pain or pressure. He reports chronic lower extremity edema not on diuretics as an outpatient.
GEN: NAD. AAOx3
LUNGS: Bronchovesicular breath sounds decreased but clear
CV: Regular. Positive S1-S2. No murmurs.
ABD: soft, obese, BS+, NT, ND
EXT: +1-2 B/L LE edema to knees. Cath sites intact.
Plan:
Non-STEMI status post left heart catheterization 08/23/2024 with successful PCI to 90% mid RCA stenosis with 3.5x 26 mm Medtronic Michael drug-eluting stent with high normal LVEDP
-Patient reports symptomatic improvement following RCA PCI 08/24/24.
-He is doing well without recurrent symptoms of angina
-Echocardiogram with normal LV systolic function with no significant regional wall motion abnormalities. EF 55-60%. Mitral and aortic sclerosis. Estimated pulmonary artery pressures within normal limits.
-Chronic outpatient doses of aspirin and Plavix have been continued.
-Outpatient dose of Coreg CR 40 mg daily was changed to Coreg 12.5 mg BID due to formulary at
-LDL was 82 on outpatient labs 08/09/2024, but 39 by labs 08/24/24. Patient reports compliance with his usual dosing of atorvastatin 80 mg daily and Zetia 10 mg daily
-Given lower extremity edema we will start Lasix 20 mg Wednesday. Will repeat labs in 1 week prior to being seen in the office for follow-up.
-He may resume Ozempic; next dose this coming Wednesday
-Patient with known CKD 3B and baseline creatinine 2.0-2.2. Creatinine is 1.7 on 08/24/2024
-Discharge home today with outpatient cardiac follow-up
-Cardiac rehab initiated closer to patient's home
Original Note:
Today's Communication / Plan
-
Check another Troponin at 1100
Check echo
Likely d/c to home
Impression / Plan
-
Primary gas derrick operator: Dr. Lauren
PCP: Micheal Aggarwal MD
Impression:
Admitted with chest pain and ACS 08/23/24
NSTEMI, initial Troponin 0.049
CAD
s/p PCI of OM1 with 2.5 x 23 mm Cypher stent and 2.8 x 8 mm Cypher stent proximal edge of initial stent, 08/22/04
s/p PCI of mid Circ to OM1 proximal segment with a 3.0 x 15 mm Xience stent for treatment of in-stent restenosis in the OM1 proximally stented area 09/16/09
s/p PCI of distal edge of OM1 with a 3.0x16 mm Promus stent, Diag-1 with a 2.5 x 16 mm Promus stent, and mid LAD with a 3.5 x 17 mm EluNIR stent 10/29/17
s/p PCI of mid Circ into the large OM1 with placement of a 3.5 x 28 mm Promus stent 11/23/19
s/p PCI of mid RCA with 3.5 x 26 mm Medtronic [place] BENITO 08/24/24
Chronic DAPT with aspirin and Plavix
CKD 3b, baseline Cre 2.0-2.2
HTN
HLD
hypothyroidism
BPH
obesity
anemia
Echo 11/16/2019: EF 68%, mild to moderate LVH, stage I diastolic dysfunction, normal RV, mild MR
Echo 08/24/24: Study pending
Plan:
-Patient reports symptomatic improvement following RCA PCI 08/24/24.
-Chronic outpatient doses of aspirin and Plavix have been continued.
-Check echo
-Initial troponin 0.049 and then 0.296 on 08/24/2024 AM. Recheck Troponin at 1100.
-Outpatient dose of Coreg CR 40 mg daily was changed to Coreg 12.5 mg BID due to formulary at
-LDL was 82 on outpatient labs 08/09/2024, but odwn to 39 by labs 08/24/24. Patient reports compliance with his usual dosing of atorvastatin 80 mg daily and Zetia 10 mg daily
-Patient has been using Ozempic for his DM2 and has also been managing to lose some weight. His last dose was Wednesday
Patient with known CKD 3B and baseline creatinine 2.0-2.2. Creatinine is 1.7 on 08/24/2024
-Likely discharge to home 06/23/2025 pending echo and follow-up troponin level
HPI: Patient came to ER today with complaints of chest pain and his initial troponin was elevated so cardiology was consulted in the ER. Patient lives about an hour away, but has had all of his previous cardiology care here at [place] and
still insist on driving to to see his PCP and his gas derrick operator. Patient says that starting 1 month ago he was on a cruise and they were on an excursion where he was carrying a backpack up a steep hill and he started with pressure in his chest
that improved with rest. When he returned home from the trip he had other episodes of higher levels of exertion causing the same chest pressure that was again relieved by rest. Concerningly however, in the last couple of days he has been having
the same chest pressure with walking on a flat surface and not associated with any heavy lifting. He called our answering service today to state that he was going to take himself to ER for an evaluation. Patient had chest pain walking from his
car to the waiting room and again walking from the waiting room to the ER room. His initial troponin was 0.049. His ECG is SR without acute ST changes. He is pain-free at rest currently.
Progress Note - Billing Adjudicator
Subjective
Date of Service: August 24, 2024
He feels well, no chest pain
Objective
Labs:
08/24/24 04:04
08/24/24 04:04
Labs
Hgb 10.2 g/dL (13.0-18.0) L 08/24/24 04:04
Hct 31.2 % (39.0-52.0) L 08/24/24 04:04
Plt Count 114 10^3/uL (130-400) L 08/24/24 04:04
APTT Cancelled 08/23/24 19:20
Sodium 136 mmol/L (135-145) 08/24/24 04:04
Potassium 4.5 mmol/L (3.5-5.1) 08/24/24 04:04
BUN 25 mg/dl (9-20) H 08/24/24 04:04
Creatinine 1.7 mg/dL (0.7-1.3) H 08/24/24 04:04
Glucose 71 mg/dl (70-99) 08/24/24 04:04
Troponins
08/23/24
10:35
Troponin I 0.049 H*
Vital Signs and I&O:
Vital Signs
Temp Pulse Resp BP Pulse Ox
97.9 F 75 18 143/79 99
08/24/24 04:01 08/24/24 05:30 08/24/24 04:01 08/24/24 03:49 08/24/24 04:01
Vital Signs
Temp Pulse Resp BP Pulse Ox
97.9 F 75 18 143/79 99
08/24/24 04:01 08/24/24 05:30 08/24/24 04:01 08/24/24 03:49 08/24/24 04:01
Physical Exam
Physical Exam
GEN: NAD. AAOx3
HEENT: MMM
LUNGS: RA. No wheeze
CV: SR on tele.
ABD: soft, BS+, NT, ND
EXT: +1 B/L LE edema to knees.
NEURO: Gross non-focal
SKIN: No rash
[2024-08-24 08:04] VITALS: BP 144/91
[2024-08-24 08:06] VITALS: BP 144/91
[2024-08-24] MEDS: PLAVIX 75 MG PO (08:08)
[2024-08-24] MEDS: COREG 12.5 MG PO (08:09)
[2024-08-24] MEDS: CELLCEPT 1000 MG PO (08:10)
[2024-08-24] MEDS: FLOMAX 0.4 MG PO (08:10)
[2024-08-24 09:02] LABS: Troponin I 0.296 ng/ml
--- NOTE | 2024-08-24 09:41 | PTCARENOTE ---
Assumed care of pt from night RN. Pt received awake and alert, Ox3. VSS, CM shows NSR 70's, POX 97% on RA. Trop up to 0.296, next trop due at 1430. Pt denies any pain or discomfort at this time.
--- NOTE | 2024-08-24 10:00 | W.DS.TRANS ---
DC Summary - Change Over
-
Discharge Instructions:
Discharge Diagnosis/Procedures NSTEMI, Angioplasty with stent to RCA
Diet Low Cholesterol
Activity Other activity
Driving Restrictions No driving for 24 hours
Bathing Restrictions OK to Shower
Other Services Cardiac Rehab
Instructions:
Stand-Alone Forms: DC Instructions- Cath/EP Lab
Changes to Home Medications: No
Discharge Medications:
DC Medications w/original date entered in [employer]
pantoprazole 40 mg tablet,delayed release 40 mg PO HS Gastrointestinal issue 07/29/11
acetaminophen 650 mg tablet,extended release (Tylenol Arthritis) 1,300 mg PO BID Pain 10/28/17
aspirin 81 mg tablet,delayed release 81 mg PO HS Blood clot prevention/tx 10/28/17
atorvastatin 80 mg tablet 80 mg PO HS High cholesterol 10/28/17
clopidogrel 75 mg tablet 75 mg PO DAILY Blood clot prevention/tx 10/28/17
loratadine-pseudoephedrine ER 10 mg-240 mg tablet,extended [id number] 1 tab PO DAILYPRN PRN congestion 10/28/17
sennosides 8.6 mg tablet (senna) 1 tab PO DAILYPRN PRN constipation 10/28/17
tamsulosin 0.4 mg capsule 0.4 mg PO BID Urinary issue 10/28/17
ezetimibe 10 mg tablet 10 mg PO HS High cholesterol 11/23/19
potassium citrate 10 mEq (1,080 mg) tablet,extended release 10 meq PO DAILY electrolyte repletion 11/23/19
betamethasone dipropionate 0.05 % topical cream 1 applic topical BID PRN flare up 08/23/24
carvedilol 12.5 mg tablet 12.5 mg PO BID Blood Pressure 08/23/24
levothyroxine 150 mcg tablet 150 mcg PO MOTUWETHFRSA Thyroid 08/23/24
mycophenolate mofetil 500 mg tablet 1,000 mg PO BID Transplant 08/23/24
omega 1-dti-ixe-fish oil 60 mg-90 mg-500 mg capsule (Fish Oil) 1 cap PO BID Supplement 08/23/24
semaglutide 1 mg/dose (4 mg/3 mL) subcutaneous pen injector (Ozempic) 1 mg SC FEUNTES Diabetes 08/23/24
therapeutic multivitamin 1 tab PO DAILY Supplement 08/23/24
triamcinolone acetonide 0.1 % topical cream 1 applic topical BIDPRN PRN rash 08/23/24
Home Medication Changes
Pending Results: No
[2024-08-24 10:56] VITALS: BP 133/69
--- NOTE | 2024-08-24 11:27 | CM ---
CM following for DC planning needs.
Met w/ patient and spouse at bedside to complete initial assessment.
Pt. resides in a private, 1 story home with spouse. He is functionally indep. w/ ADLs, mobility without the use of any assisted device.
Pt. has RX plan and uses [facility] for prescription needs.
Antic. DC plan is for home, no needs.
Will follow.
[2024-08-24 12:07] LABS: Troponin I 0.294 ng/ml
[2024-08-24 15:13] LABS: Troponin I 0.315 ng/ml
[2024-08-24 15:26] VITALS: BP 109/68
--- NOTE | 2024-08-24 15:35 | W.DS.TRANS ---
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
-
Discharge Instructions:
Discharge Diagnosis/Procedures NSTEMI, Angioplasty with stent to RCA
Diet Low Cholesterol
Activity Other activity
Driving Restrictions No driving for 24 hours
Bathing Restrictions OK to Shower
Blood Work Check non-fasting blood work in 1-2 weeks
Other Services Cardiac Rehab
Instructions:
Stand-Alone Forms: DC Instructions- Cath/EP Lab
Changes to Home Medications: Yes
Discharge Medications:
DC Medications w/original date entered in [employer]
pantoprazole 40 mg tablet,delayed release 40 mg PO HS Gastrointestinal issue 07/29/11
acetaminophen 650 mg tablet,extended release (Tylenol Arthritis) 1,300 mg PO BID Pain 10/28/17
aspirin 81 mg tablet,delayed release 81 mg PO HS Blood clot prevention/tx 10/28/17
atorvastatin 80 mg tablet 80 mg PO HS High cholesterol 10/28/17
clopidogrel 75 mg tablet 75 mg PO DAILY Blood clot prevention/tx 10/28/17
loratadine-pseudoephedrine ER 10 mg-240 mg tablet,extended [id number] 1 tab PO DAILYPRN PRN congestion 10/28/17
sennosides 8.6 mg tablet (senna) 1 tab PO DAILYPRN PRN constipation 10/28/17
tamsulosin 0.4 mg capsule 0.4 mg PO BID Urinary issue 10/28/17
ezetimibe 10 mg tablet 10 mg PO HS High cholesterol 11/23/19
potassium citrate 10 mEq (1,080 mg) tablet,extended release 10 meq PO DAILY electrolyte repletion 11/23/19
betamethasone dipropionate 0.05 % topical cream 1 applic topical BID PRN flare up 08/23/24
carvedilol 12.5 mg tablet 12.5 mg PO BID Blood Pressure 08/23/24
levothyroxine 150 mcg tablet 150 mcg PO MOTUWETHFRSA Thyroid 08/23/24
mycophenolate mofetil 500 mg tablet 1,000 mg PO BID Transplant 08/23/24
omega 8-izk-mba-fish oil 60 mg-90 mg-500 mg capsule (Fish Oil) 1 cap PO BID Supplement 08/23/24
semaglutide 1 mg/dose (4 mg/3 mL) subcutaneous pen injector (Ozempic) 1 mg SC FUENTES Diabetes 08/23/24
therapeutic multivitamin 1 tab PO DAILY Supplement 08/23/24
triamcinolone acetonide 0.1 % topical cream 1 applic topical BIDPRN PRN rash 08/23/24
furosemide 20 mg tablet (Lasix) 20 mg PO MOWEFR Fluid retention/Swelling #12 tabs 08/24/24
Home Medication Changes
New to Lasix
Pending Results: No
--- NOTE | 2024-08-24 16:23 | PTCARENOTE ---
All D/C info reviewed with pt, all questions answered. Pt D/C'd home with spouse.
== END 2024-08-24 16:00 | disposition home or self-care (01) | DRG 322 ==
LOC: IVU 20:56
PROVIDERS: Internal Medicine Interventional Cardiology; Nurse Practitioner Adult Health; Physician Assistant Medical; Student in an Organized Health Care Education/Training Program; ADMITTING PHYSICIAN Internal Medicine Cardiovascular Disease; EMERGENCY PHYSICIAN Emergency Medicine; FAMILY PHYSICIAN Internal Medicine
PROC: B211YZZ Fluoroscopy of Multiple Coronary Arteries using Other Contrast (ICD-10-PCS; 2024-08-23)
PROC: 027034Z Dilation of Coronary Artery, One Artery with Drug-eluting Intraluminal Device, Percutaneous Approach (ICD-10-PCS; 2024-08-23)
PROC: 4A023N7 Measurement of Cardiac Sampling and Pressure, Left Heart, Percutaneous Approach (ICD-10-PCS; 2024-08-23)
PROC: B240ZZ3 Ultrasonography of Single Coronary Artery, Intravascular (ICD-10-PCS; 2024-08-23)
DX: I21.4 Non-ST elevation (NSTEMI) myocardial infarction (principal); I25.10 Atherosclerotic heart disease of native coronary artery without angina pectoris; I12.9 Hypertensive chronic kidney disease with stage 1 through stage 4 chronic kidney disease, or unspecified chronic kidney disease; N18.32 Chronic kidney disease, stage 3b; N40.0 Benign prostatic hyperplasia without lower urinary tract symptoms; K21.9 Gastro-esophageal reflux disease without esophagitis; E78.00 Pure hypercholesterolemia, unspecified; E11.22 Type 2 diabetes mellitus with diabetic chronic kidney disease; E66.9 Obesity, unspecified; E03.9 Hypothyroidism, unspecified; D63.1 Anemia in chronic kidney disease; Z87.891 Personal history of nicotine dependence; Z79.899 Other long term (current) drug therapy; Z79.82 Long term (current) use of aspirin; Z79.890 Hormone replacement therapy; Z68.37 Body mass index [BMI] 37.0-37.9, adult
CPT/HCPCS: 76937; 80048; 80053; 80061; 83880; 84484; 85025; 85027; 85347; 85730; 92978; 93005; 93306; 93458; 96374; 99152; 99153; 99285; C1725; C1753; C1874; C1887; C1894; C9600; Q9967

== ENCOUNTER → 2024-09-16 11:22 | Outpatient (REF) | payer BC, SELFPAY ==
[2024-09-16 12:43] LABS: NT-proBNP 40.2 pg/ml
[2024-09-16 13:37] LABS: Blood Urea Nitrogen 36 mg/dl (9-20); Calcium 9.6 mg/dl (8.4-10.2); Carbon Dioxide 27 mmol/L (22-30); Chloride 101 mmol/L (98-107); Glucose 82 mg/dl (70-99); Potassium 4.6 mmol/L (3.5-5.1); Sodium 139 mmol/L (135-145); eGFR 26.61
== END ==
LOC: REG 11:22
PROVIDERS: ATTENDING PHYSICIAN Internal Medicine Cardiovascular Disease
DX: R60.0 Localized edema (principal)
CPT/HCPCS: 36415; 80048; 83880

== ENCOUNTER → 2024-09-21 12:01 | Outpatient (REF) | payer BC, SELFPAY ==
[2024-09-21 12:42] LABS: % Basophils 0.4 % (0-2); % Eosinophils 2.9 % (0-6); % Immature Granulocytes 0.7 % (0-0.5); % Lymphocytes 14.6 % (20.5-51.1); % Monocytes 5.9 % (1.7-9.3); % Neutrophils 75.5 % (42.2-75.2); Absolute Eosinophils 0.2 10^3/uL (0-0.7); Absolute Immature Granulocytes 0.1 10^3/uL (0-0.05); Absolute Lymphocytes 1.1 10^3/uL (1.2-3.4); Absolute Monocytes 0.4 10^3/uL (0.1-0.6); Absolute Neutrophils 5.5 10^3/uL (1.4-6.5); Hematocrit 31.8 % (39.0-52.0); Hemoglobin 10.5 g/dL (13.0-18.0); Mean Corpuscular Hgb 30.8 pg (27.0-31.0); Mean Corpuscular Volume 93.3 fL (80.0-94.0); Mean Platelet Volume 9.5 fL (7.4-10.4); Nucleated Red Blood Cells % 0 % (-); Platelet Count 174 10^3/uL (130-400); Red Blood Cell Count 3.41 10^6/uL (4.70-6.10); Red Cell Dist. Width 13.8 % (11.5-14.5); White Blood Cell Count 7.3 10^3/uL (4.8-10.8)
[2024-09-21 12:56] LABS: ALT (SGPT) 17 U/L (0-50); AST (SGOT) 24 U/L (17-59); Albumin 4.1 g/dl (3.5-5.0); Alkaline Phosphatase 54 U/L (38-126); Blood Urea Nitrogen 36 mg/dl (9-20); Calcium 9.9 mg/dl (8.4-10.2); Carbon Dioxide 30 mmol/L (22-30); Chloride 107 mmol/L (98-107); Glucose 98 mg/dl (70-99); Magnesium 1.8 mg/dl (1.6-2.3); Potassium 4.8 mmol/L (3.5-5.1); Sodium 144 mmol/L (135-145); Total Protein 6.4 g/dl (6.3-8.2); eGFR 29.54
== END ==
LOC: REG 12:01
PROVIDERS: ATTENDING PHYSICIAN Dermatology; FAMILY PHYSICIAN Internal Medicine
DX: L12.0 Bullous pemphigoid (principal)
CPT/HCPCS: 36415; 80053; 83735; 85025

== ENCOUNTER → 2024-10-27 09:00 | Outpatient (REF) | payer BC, SELFPAY ==
[2024-10-27 09:37] LABS: % Basophils 0.1 % (0-2); % Eosinophils 0.1 % (0-6); % Immature Granulocytes 0.9 % (0-0.5); % Lymphocytes 7.7 % (20.5-51.1); % Neutrophils 86.2 % (42.2-75.2); Absolute Immature Granulocytes 0.1 10^3/uL (0-0.05); Absolute Lymphocytes 0.9 10^3/uL (1.2-3.4); Absolute Monocytes 0.6 10^3/uL (0.1-0.6); Absolute Neutrophils 9.6 10^3/uL (1.4-6.5); Hematocrit 25.6 % (39.0-52.0); Hemoglobin 8.6 g/dL (13.0-18.0); Mean Corp Hgb Conc. 33.6 g/dL (33.0-37.0); Mean Corpuscular Hgb 30.6 pg (27.0-31.0); Mean Corpuscular Volume 91.1 fL (80.0-94.0); Mean Platelet Volume 9.5 fL (7.4-10.4); Nucleated Red Blood Cells % 0 % (-); Platelet Count 167 10^3/uL (130-400); Red Blood Cell Count 2.81 10^6/uL (4.70-6.10); Red Cell Dist. Width 12.5 % (11.5-14.5); White Blood Cell Count 11.1 10^3/uL (4.8-10.8)
[2024-10-27 15:10] LABS: ALT (SGPT) 18 U/L (0-50); AST (SGOT) 21 U/L (17-59); Albumin 3.5 g/dl (3.5-5.0); Alkaline Phosphatase 59 U/L (38-126); Blood Urea Nitrogen 42 mg/dl (9-20); Calcium 9.7 mg/dl (8.4-10.2); Carbon Dioxide 24 mmol/L (22-30); Chloride 107 mmol/L (98-107); Glucose 98 mg/dl (70-99); Magnesium 1.2 mg/dl (1.6-2.3); Potassium 4.2 mmol/L (3.5-5.1); Sodium 143 mmol/L (135-145); Total Bilirubin 0.4 mg/dl (0.2-1.3); Total Protein 5.7 g/dl (6.3-8.2); eGFR 31.23
== END ==
LOC: REG 09:00
PROVIDERS: ATTENDING PHYSICIAN Dermatology; FAMILY PHYSICIAN Internal Medicine
DX: L12.0 Bullous pemphigoid (principal)
CPT/HCPCS: 36415; 80053; 83735; 85025

== ENCOUNTER 2024-10-27 21:54 | Inpatient (IN) | payer BC, SELFPAY ==
[2024-10-27 15:49] VITALS: BP 152/79
[2024-10-27 18:02] VITALS: BP 164/98
[2024-10-27 19:00] VITALS: BP 161/90
[2024-10-27 19:15] VITALS: BMI 37.5
[2024-10-27 19:39] LABS: NT-proBNP 256 pg/ml
[2024-10-27 19:59] LABS: Troponin I < 0.012 ng/ml
--- NOTE | 2024-10-27 20:52 | ED.GENMED ---
History of Present Illness
General
Chief Complaint: Breathing Problem
Source: patient
Exam Limitations: none
Time Seen by Provider: 10/27/24 18:31
History of Present Illness
History of Present Illness:
Patient describing progressive shortness of breath with exertion with lightheaded and near syncopal symptoms. Has been going on for weeks but much worse the last few days. No chest pain no pleuritic pain no abdominal pain no other complaints
Past History
Past History
ED Past Medical History: CAD, GERD, HTN, Hypercholesterolemia, Hypothyroidism and Other
ED Past Surgical History: Cardiac and Orthopedic
Social History
Tobacco: Non-smoker
Alcohol: None
Drug: None
Personal:
Living: with family
Employment: Employed
Family History
Family History: Other (Noncontributory)
Review of Systems
Review of Systems
All Other Systems: Not applicable
Constitutional: Denies fever or chills
Cardiac: Denies chest pain or syncope
Phy Exam
Physical Exam
Physical Exam:
GENERAL: Alert and oriented in no apparent distress
EYE: Orbits normal.
NECK: Supple
CARDIAC: Regular rate and rhythm without any obvious murmurs.
LUNGS: Clear breath sounds,normal
ABDOMEN: Soft, without focal tenderness or distention. Rectal heme-negative
NEUROLOGICAL: Alert and oriented , grossly non-focal
SKIN: Warm and dry, no rash or lesion, no discoloration, skin intact.
MUSCULOSKELETAL: Mild chronic appearing edema.
PSYCH: Normal and appropriate interaction.
Scores
Heart Failure Risk
Heart Failure Risk Score: Not Applicable
Course
Orders/Labs/Results
Orders:
Orders
10/27/24 Dinner
Cholesterol Lowering
At Your Request: Full Participation
Cholesterol Lowering: Sodium, 2 Gram
10/27/24 15:33
EKG [Electrocardiogram (*1)] Urgent
Reason for Study: Shortness of Breath
10/27/24 18:51
US Periph Venous LOWER Ext Yrn Urgent
Comment:
Reason For Exam: Shortness of breath with exertion
10/27/24 18:52
CR Chest - 2 Views Urgent
Comment:
Reason For Exam: Shortness of breath with exertion
Pulse Ox/cont/shift [RESP] Stat
Quantity: 1
10/27/24 19:08
NT-proBNP Urgent
Troponin I Urgent
10/27/24 21:42
Admit/Transfer Patient As Directed
Co-Sign Provider:
Level of Care: Inpatient admission
Assign to:: Telemetry
Physician / Group: hanh
Diagnosis: dyspnea
Reason for Telemetry: Arrhythmia
Date to Stop Telemetry: 10/30/24
Time to Stop Telemetry: 11:00
Reason for Hospitalization: dyspnea
Expected length of stay greater than two midnights?: Yes
ELOS- Estimated Length of Stay in days: 2
I certify the patient meets the requirements for IP care: Yes
Code Status As Directed
Resuscitation Status: Full Code
PRN Pain Medication Management As Directed
May give lesser potent ordered pain med per pt: Yes
preference::
Protocol:: Medication orders for pain may be administered in a
manner that supports deferring to patient preference
when the pt is:
- Requesting an ordered lesser potent pain medication.
Least to most potent pain medications are defined
as: acetaminophen < NSAID < tramadol < opioids
(morphine, oxycodone, hydromorphone).
- Requesting a lesser dose of the same medication IF
ORDERED.
- Requesting a less intrusive route of administration
if both routes are prescribed by the provider (PO <
IV).
10/27/24 22:00
Flush (0.9% Sodium Chloride) [Flush (Nss)] See Dose Instructions IV PER PROTOCOL
10/27/24 22:09
Aspirin Low Dose EC [Aspir Low (Enteric Coated)] 81 mg PO HS
Atorvastatin [Lipitor] 80 mg PO HS
Ezetimibe [Zetia] 10 mg PO HS
Pantoprazole [Protonix] 40 mg PO HS
Prednisone [Deltasone] 40 mg PO DIRECTED
Sennosides [Senokot] 8.6 mg PO DAILYPRN PRN
10/27/24 22:09
B12 [Vitamin B12] Routine
Ferritin Routine
Folate Routine
Iron Routine
TIBC [Total Iron Binding] Routine
Activity As Directed
Activity Level: As Tolerated
Orthostatic Vital Signs As Directed
Orthostatic VS Frequency: Daily
Vital Signs As Directed
Frequency: Per unit guidelines
DX Deep Vein Thrombosis Video Routine
10/27/24 23:00
Acetaminophen [Tylenol] 500 mg PO QID
10/28/24 06:00
Complete Blood Count/With Diff IN AM
Comprehensive Metabolic Panel IN AM
Levothyroxine [Synthroid] 150 mcg PO [id number]@0600
10/28/24 08:00
Carvedilol [Coreg] 12.5 mg PO BID
Clopidogrel Bisulfate [Plavix] 75 mg PO DAILY
Heparin 5,000 units SC Q12
Multivitamin [Theragran] 1 tablet PO DAILY
Potassium Citrate [Urocit-K] 10 meq PO DAILY
Tamsulosin [Flomax] 0.4 mg PO BID
betamethasone dipropionate 1 applic TOPICAL BID
omega 1-rzs-oep-fish oil [Fish Oil] 1 cap PO BID
10/30/24 08:00
Furosemide [Lasix] 20 mg PO MoWeFr@0800
10/30/24 11:00
DC Protocol for Telemetry ONCE
Vital Signs
Initial and Last Documented VS:
Initial Vital Signs
Temp Pulse Resp BP Pulse Ox
98.4 F 94 16 152/79 98
10/27/24 15:49 10/27/24 15:49 10/27/24 15:49 10/27/24 15:49 10/27/24 15:49
Last Documented Vital Signs
Temp Pulse Resp BP Pulse Ox
97.7 F 83 18 147/123 99
10/27/24 22:30 10/27/24 22:30 10/27/24 22:30 10/27/24 22:30 10/27/24 22:30
MDM/Problems Addressed
Differential Diagnosis Includes:
Patient with exertional shortness of breath lightheadedness. Stable at rest. No serious etiology found in the ER however would still have to consider cardiac related, symptomatic anemia related or PE. Which is unlikely.
*Radiology
Radiology exam reviewed: radiology read reviewed (Negative)
*Pulse Oximetry
Patient hypoxic: no
*EKG
Interpreted by ED Provider?: Yes
Interpretation: abnormal
Comparison EKG: changes noted
Heart Rate: 81
Rate: normal
Rhythm: sinus
Guys: left axis deviation
Interval: normal interval
QRS Pattern: wide non-specific
Ischemia: non-specific ST changes
*Trash Man Interpretation
Rate: normal
Interpretation: normal
Heart Rate: 80
Rhythm: sinus
*Critical Care Note
Total Time (30-74mins, 75-104mins- exclusive of procedures): Not Applicable
ED Attending Note
-
Portions of this chart may have been created with voice recognition software.� Occasional wrong word or��sound alike� substitutions may have occurred due to the inherent limitations of voice recognition software.
Discharge Plan
Departure
Patient Disposition: Admit
Date of Disposition: 10/27/24
Time of Disposition: 20:54
Presentation/result/management discussed w/ accepting MD/DO: Hospitalist
Discharge Problem:
Progressive dyspnea on exertion, Anemia
Interventions
Interventions:
*Risk Screen - Suicide Last Done: 10/27/24 15:49
*General Assessment Last Done: 10/27/24 19:15
*Neglect/Abuse Screening Last Done: 10/27/24 15:49
*ED- Fall Risk Assessment Last Done: 10/27/24 19:15
*ED COVID-19 Vaccine History Last Done: 10/27/24 19:15
*Nursing Disposition Last Done: 10/27/24 22:10
ED- Cardiac Assessment Last Done: 10/27/24 19:15
ED- Pulmonary Assessment Last Done: 10/27/24 19:15
Discharge Date and Time
Discharge Date/Time: 10/27/24 22:18
--- NOTE | 2024-10-27 21:48 | HPS.HSE ---
Family Physician
-
Family Physician: Micheal Aggarwal
Chief Complaint
-
shortness of breath
History of Present Illness
79-year-old male past medical history of NSTEMI, CAD, CKD 3B, hypertension, hyperlipidemia, hypothyroidism, BPH, obesity, anemia, bullous pemphigoid presenting with progressive shortness of breath with exertion, vertigo and lightheadedness.
Patient was admitted in July for NSTEMI status post stent and has been attending cardiac rehab since then. He was started on Lasix which is only new medication since that time he has noticed progressive shortness of breath with minimal exertion
and vertigo and lightheadedness with positional movements. His blood pressures been in the 80s systolic several times. He has come close to passing out a few times. Denies any blood in the stool or black stool. Denies any chest pain.
He has stable lower extreme edema which has not gotten worse. He denies any weight gain or weight loss. He denies asymmetric leg cramping or swelling.
He recently had diarrhea for the past 2 weeks attributed to increasing dose of CellCept which he takes for bullous pemphigoid. CellCept was stopped and diarrhea improved. He was also started on prednisone taper. He has 2 more days of 40 mg, and
then decreases by 10 mg every 3 days.
He denies any fevers or chills.
He is a former smoker. Drinks alcohol very rarely.
Medical History
Past Medical History
Past Medical History: Reports Other (NSTEMI, CAD, CKD 3B, hypertension, hyperlipidemia, hypothyroidism, BPH, obesity, anemia, bullous pemphigoid)
Past Surgical History: Reports None
Social History
Tobacco: Former Smoker
Alcohol: Occasional
Drug: None
Family History
Family History: Not pertinent
Allergies / Home Medications
Allergies reflects when Allergies were last updated in [employer].
Home Medications with original date entered in [employer]
Allergy/Medication List:
Allergies
Allergy/AdvReac Type Severity Reaction Status Date / Time
celecoxib [From Celebrex] Allergy facial Verified 10/27/24 15:49
swelling
hydrocodone Allergy facial Verified 10/27/24 15:49
swelling
NSAIDS (Non-Steroidal Allergy Swelling Verified 10/27/24 15:49
Anti-Inflamma
perindopril erbumine Allergy facial Verified 10/27/24 15:49
[From Aceon] swelling
rofecoxib Allergy Patient Verified 10/27/24 15:49
unaware of
this
allergy
Salicylates * Allergy Patient Verified 10/27/24 15:49
unaware of
this
allergy
tramadol Allergy Unknown Verified 10/27/24 15:49
Home Medications
pantoprazole 40 mg tablet,delayed release 40 mg PO HS Gastrointestinal issue 07/29/11
aspirin 81 mg tablet,delayed release 81 mg PO HS Blood clot prevention/tx 10/28/17
atorvastatin 80 mg tablet 80 mg PO HS High cholesterol 10/28/17
clopidogrel 75 mg tablet 75 mg PO DAILY Blood clot prevention/tx 10/28/17
sennosides 8.6 mg tablet (senna) 1 tab PO DAILYPRN PRN constipation 10/28/17
tamsulosin 0.4 mg capsule 0.4 mg PO BID Urinary issue 10/28/17
ezetimibe 10 mg tablet 10 mg PO HS High cholesterol 11/23/19
potassium citrate 10 mEq (1,080 mg) tablet,extended release 10 meq PO DAILY electrolyte repletion 11/23/19
betamethasone dipropionate 0.05 % topical cream 1 applic topical BID flare up 08/23/24
carvedilol 12.5 mg tablet 12.5 mg PO BID Blood Pressure 08/23/24
levothyroxine 150 mcg tablet 150 mcg PO MOTUWETHFRSA Thyroid 08/23/24
omega 2-jsl-bhy-fish oil 60 mg-90 mg-500 mg capsule (Fish Oil) 1 cap PO BID Supplement 08/23/24
semaglutide 1 mg/dose (4 mg/3 mL) subcutaneous pen injector (Ozempic) 1 mg SC FUENTES Diabetes 08/23/24
therapeutic multivitamin 1 tab PO DAILY Supplement 08/23/24
furosemide 20 mg tablet (Lasix) 20 mg PO MOWEFR Fluid retention/Swelling #12 tabs 08/24/24
acetaminophen 650 mg tablet,extended release 1,300 mg PO Q12H 10/27/24
prednisone 10 mg tablet 50 mg PO DIRECTED 10/27/24
Review of Systems
-
History Source: Patient
A 12 point ROS was completed and negative except as noted: Yes
Constitutional: Reports No Symptoms
EENT: Reports No Symptoms
Respiratory: Reports No Symptoms
Cardiac: Reports No Symptoms
Abdomen/GI: Reports No Symptoms
: Reports No Symptoms
Musculoskeletal: Reports No Symptoms
Skin: Reports No Symptoms
Neurological: Reports No Symptoms
Endocrine: Reports No Symptoms
Hematologic/Lymphatic: Reports No Symptoms
Psych: Reports No Symptoms
Physical Exam
Vital Signs
Vital Signs
Temp Pulse Resp BP Pulse Ox
98.4 F 69 14 161/90 99
10/27/24 15:49 10/27/24 21:30 10/27/24 21:30 10/27/24 19:00 10/27/24 21:30
Physical Exam
General: Well Developed, Well Nourished and No Apparent Distress
HEENT: NormoCephalic, Moist mucous membranes and Atraumatic
Respiratory: Clear
Cardiac: S1/S2 and Regular Rhythm; No Murmur or Rub
GI: Soft, Non Tender, Non Distended and Normal Bowel Sounds; No Organomegaly
Rectal: Deferred by Provider
Musculoskeletal: No Clubbing, No Cyanosis and No Edema
Skin: No Rash
Neuro: Nonfocal/grossly intact
Laboratory Results
-
Laboratory Results
Troponin I < 0.012 ng/ml 10/27/24 19:08
Data Reviewed
-
Lab Data: Labs Reviewed by me
Old Records: Reviewed
Impression/Plan
-
IMPRESSION:
PLAN:
# Progressive exertional dyspnea, lightheadedness and near syncope unclear etiology likely multifactorial secondary to orthostatic hypotension secondary to Lasix and worsening anemia
-Patient hypertensive here
- Chest x-ray shows no acute cardiopulmonary process
- Cardiac BNP 256
- Recent echocardiogram from July 2024 shows EF of 55 to 60%, LVH
- Check orthostatic vital signs
- Was considering the possibility of pulmonary embolism although not high pretest probability
- D-dimer will likely be elevated due to chronic medical conditions, consider VQ scan if further workup negative
-Difficult situation if orthostatic since resting blood pressure is elevated
- Consider cardiology for medication titration
# Worsening of chronic normocytic anemia likely secondary to CKD
-Doubt that anemia on its own should be responsible for symptoms although it could be contributing
- No bloody stool or black stool
- Check iron studies, B12 and folate
History of CAD
Recent NSTEMI status post PCI of RCA
- Continue aspirin, Plavix, statin
- Continue Coreg
Lower extremity edema
- Continue Lasix
CKD 3B
- Renal function at baseline
Essential hypertension
Hyperlipidemia
- Continue statin, Zetia
Hypothyroidism
- Continue levothyroxine
BPH
- Continue tamsulosin
Obesity
- On Ozempic
Bullous pemphigoid
- Continue prednisone taper, has 2 more days of 40 mg
- Off CellCept due to recent diarrhea which is resolved
Full code
DVT prophylaxis�heparin
Cardiac diet
[2024-10-27 22:15] VITALS: BMI 36.3
[2024-10-27 22:30] VITALS: BP 147/123
[2024-10-27] MEDS: ASPIR LOW (ENTERIC COATED) 81 MG PO (22:46)
[2024-10-27] MEDS: TYLENOL 500 MG PO (22:46)
[2024-10-27] MEDS: LIPITOR 80 MG PO (22:46)
[2024-10-27] MEDS: ZETIA 10 MG PO (22:46)
[2024-10-27] MEDS: PROTONIX 40 MG PO (22:46)
[2024-10-27] MEDS: FLOMAX 0.4 MG PO (23:38)
[2024-10-28 03:41] VITALS: BP 146/71
[2024-10-28] MEDS: SYNTHROID 150 MCG PO (05:33)
[2024-10-28 06:00] VITALS: BMI 36.1
[2024-10-28 06:59] LABS: % Basophils 0.1 % (0-2); % Eosinophils 0.1 % (0-6); % Immature Granulocytes 1.1 % (0-0.5); % Lymphocytes 9.1 % (20.5-51.1); % Monocytes 4.9 % (1.7-9.3); % Neutrophils 84.7 % (42.2-75.2); Absolute Immature Granulocytes 0.1 10^3/uL (0-0.05); Absolute Lymphocytes 0.9 10^3/uL (1.2-3.4); Absolute Monocytes 0.5 10^3/uL (0.1-0.6); Absolute Neutrophils 8.3 10^3/uL (1.4-6.5); Hemoglobin 8.4 g/dL (13.0-18.0); Mean Corp Hgb Conc. 33.6 g/dL (33.0-37.0); Mean Corpuscular Volume 89.3 fL (80.0-94.0); Mean Platelet Volume 9.6 fL (7.4-10.4); Nucleated Red Blood Cells % 0 % (-); Platelet Count 163 10^3/uL (130-400); Red Cell Dist. Width 12.5 % (11.5-14.5); White Blood Cell Count 9.8 10^3/uL (4.8-10.8)
[2024-10-28 07:05] VITALS: BP 136/68
[2024-10-28 07:29] LABS: ALT (SGPT) 19 U/L (0-50); AST (SGOT) 19 U/L (17-59); Albumin 3.3 g/dl (3.5-5.0); Alkaline Phosphatase 42 U/L (38-126); Blood Urea Nitrogen 44 mg/dl (9-20); Calcium 9.4 mg/dl (8.4-10.2); Carbon Dioxide 23 mmol/L (22-30); Chloride 109 mmol/L (98-107); Estimated Creatinine Clearance 43 ml/min; Glucose 115 mg/dl (70-99); Iron 90 ug/dl (49-181); Potassium 3.8 mmol/L (3.5-5.1); Sodium 142 mmol/L (135-145); Total Bilirubin 0.4 mg/dl (0.2-1.3); Total Protein 5.4 g/dl (6.3-8.2); eGFR 33.12
[2024-10-28 07:39] LABS: Percent Saturation 32 % (20-50); Total Iron Binding Capacity 275 ug/dl (261-462)
[2024-10-28 08:33] LABS: Folate 10.8 ng/ml (2.76-20); Vitamin B12 809 pg/ml (239-931)
[2024-10-28 09:00] VITALS: BMI 36.1
[2024-10-28] MEDS: COREG 12.5 MG PO ×2 (09:09→22:01)
[2024-10-28] MEDS: DELTASONE 40 MG PO (09:09)
[2024-10-28] MEDS: PLAVIX 75 MG PO (09:09)
[2024-10-28] MEDS: FLOMAX 0.4 MG PO ×2 (09:10→22:00)
[2024-10-28] MEDS: HEPARIN 5000 UNITS SC ×2 (09:10→22:01)
[2024-10-28] MEDS: THERAGRAN 1 TABLET PO (09:10)
[2024-10-28] MEDS: FLUOCINONIDE 0.05% CREAM 1 APPLIC TOPICAL ×2 (09:11→22:02)
[2024-10-28] MEDS: UROCIT-K 10 MEQ PO (09:12)
[2024-10-28] MEDS: TYLENOL 500 MG PO ×4 (09:13→22:01)
--- NOTE | 2024-10-28 10:01 | CON.CAR ---
Addendum entered and electronically signed by Ricky Hogan MD 10/28/24 11:51:
Patient seen, interviewed and examined by me.
Well-appearing, no acute distress
Regular rate and rhythm with normal S1 and S2, no S3 no S4. There is a grade 1/6 apical holosystolic murmur and no rubs. PMI is normally placed.
Lungs are clear to auscultation bilaterally without wheezes rales or rhonchi.
Abdomen soft nontender nondistended with normoactive bowel sounds
Extremities show trace pretibial edema bilaterally no clubbing or cyanosis.
Neurologic exam is grossly nonfocal.
Etiology of his shortness of breath is not yet clear. Has been slowly progressive over the past month and also associated with a sensation of marked generalized fatigue, even at rest.
Etiology may be multifactorial.
ECG is without change, troponin is undetectable and proBNP is not elevated. Chest x-ray is without heart failure findings. Peripheral venous ultrasound shows no DVT.
At present it does not appear that cardiac etiology is playing a major role.
He is anemic (baseline hemoglobin has been approximately 11 g/dl, 10 in July 2024 and now 8.4)
Reportedly he is heme-negative.
Recommend no changes in his cardiovascular medications at this point.
Recommend ongoing evaluation for his anemia.
Total time spent today was 80 minutes in preparing to see the patient, seeing the patient and coordination of care. This included review of recent laboratory evaluations, cardiact testing, imaging studies, primary care rtecords, specialty
consultations, hospital records, as well as personally interviewing and examining the patient, which included discussion of their tests, review/ordering medications, and communicating with other healthcare professionals and also treatment planning
as well as counseling.
Original Note:
Consultation
Consultation Request
Date/Time Consultation Requested: 10/28/2024
Date/Time Consultation Performed: 10/28/2024
Requesting Provider: Dr. Mcrae
Performing Provider: Lyly Antonio PA-C for Dr. Pete Hogan
Reason for Consultation: Dizziness, SOB
Medical History
-
History of Present Illness:
HPI: Harpreet is an 79-year-old male with past medical history of CAD with recent stenting of the RCA 07/2024, CKD 3B, hypertension, hyperlipidemia, hypothyroidism, BPH, obesity, and anemia. Presented to the [facility] ER for evaluation of worsening
shortness of breath and dizziness. He states he has chronic dizziness, but over the past few weeks he has had worsening of symptoms to the point where he has significant dizziness and shortness of breath with even walking short distances around his
house. Blood pressures have been on the low side with at home anticardiac rehab, however he has not been able to participate in cardiac rehab over the past week or so due to ongoing diarrhea. He reports diarrhea was felt to be due to his CellCept,
so this was stopped earlier this week and he was placed on steroids. Diarrhea has improved, but he continues to have dizziness and lightheadedness with position change. Denies any symptoms while at rest. He denies any chest pain. He has been
compliant with medications and other than stopping CellCept, has had no medication changes. Weight remains stable, at baseline. Reports no blood in diarrhea and has had no dark black/tarry bowel movements. In ER, was found to be anemic with
hemoglobin as low as 8.4. Chest x-ray negative for acute abnormality. Low extremity ultrasound negative for DVT. Remains in sinus rhythm by ECG with no acute ischemic changes noted. Otherwise, lab work was unremarkable. He was admitted for
further workup and evaluation.
[facility] [place]:
CAD
s/p PCI of OM1 with 2.5 x 23 mm Cypher stent and 2.8 x 8 mm Cypher stent proximal edge of initial stent, 08/22/04
s/p PCI of mid Circ to OM1 proximal segment with a 3.0 x 15 mm Xience stent for treatment of in-stent restenosis in the OM1 proximally stented area 09/16/09
s/p PCI of distal edge of OM1 with a 3.0x16 mm Promus stent, Diag-1 with a 2.5 x 16 mm Promus stent, and mid LAD with a 3.5 x 17 mm EluNIR stent 10/29/17
s/p PCI of mid Circ into the large OM1 with placement of a 3.5 x 28 mm Promus stent 11/23/19
s/p PCI of mid RCA with 3.5 x 26 mm Medtronic Michael BENITO 08/24/24
Chronic DAPT with aspirin and Plavix
CKD 3b, baseline Cre 2.0-2.2
HTN
HLD
hypothyroidism
BPH
obesity
anemia
Past Medical History
Past Medical History: Other (in HPI)
Past Surgical History: Cardiac (s/p OM PCI 2004, OM1/LCx PCI 2009, OM/diag/mid LAD PCI 2017, OM1 x1 BENITO 11/24/19), Orthopedic and Other (thyroid radiation therapy)
Social History
Tobacco: Former Smoker
Alcohol: Occasional
Drug: None
Personal:
Living: With Family
Family History
Family History: Other (CVA)
Allergies / Home Medications
Allergy/AdvReac Type Severity Reaction Status Date / Time
celecoxib [From Celebrex] Allergy facial Verified 10/27/24 15:49
swelling
hydrocodone Allergy facial Verified 10/27/24 15:49
swelling
NSAIDS (Non-Steroidal Allergy Swelling Verified 10/27/24 15:49
Anti-Inflamma
perindopril erbumine Allergy facial Verified 10/27/24 15:49
[From Aceon] swelling
rofecoxib Allergy Patient Verified 10/27/24 15:49
unaware of
this
allergy
Salicylates * Allergy Patient Verified 10/27/24 15:49
unaware of
this
allergy
tramadol Allergy Unknown Verified 10/27/24 15:49
�Medication �Instructions �Recorded �Confirmed �Type
pantoprazole 40 mg tablet,delayed 40 mg PO HS Gastrointestinal issue 07/29/11 10/27/24 History
release
aspirin 81 mg tablet,delayed 81 mg PO HS Blood clot 10/28/17 10/27/24 History
release prevention/tx
atorvastatin 80 mg tablet 80 mg PO HS High cholesterol 10/28/17 10/27/24 History
clopidogrel 75 mg tablet 75 mg PO DAILY Blood clot 10/28/17 10/27/24 History
prevention/tx
sennosides 8.6 mg tablet (senna) 1 tab PO DAILYPRN PRN constipation 10/28/17 10/27/24 History
tamsulosin 0.4 mg capsule 0.4 mg PO BID Urinary issue 10/28/17 10/27/24 History
ezetimibe 10 mg tablet 10 mg PO HS High cholesterol 11/23/19 10/27/24 History
potassium citrate 10 mEq (1,080 10 meq PO DAILY electrolyte 11/23/19 10/27/24 History
mg) tablet,extended release repletion
betamethasone dipropionate 0.05 % 1 applic topical BID flare up 08/23/24 10/27/24 History
topical cream
carvedilol 12.5 mg tablet 12.5 mg PO BID Blood Pressure 08/23/24 10/27/24 History
levothyroxine 150 mcg tablet 150 mcg PO MOTUWETHFRSA Thyroid 08/23/24 10/27/24 History
omega 4-svd-abe-fish oil 60 mg-90 1 cap PO BID Supplement 08/23/24 10/27/24 History
mg-500 mg capsule (Fish Oil)
semaglutide 1 mg/dose (4 mg/3 mL) 1 mg SC FUENTES Diabetes 08/23/24 10/27/24 History
subcutaneous pen injector (Ozempic)
therapeutic multivitamin 1 tab PO DAILY Supplement 08/23/24 10/27/24 History
furosemide 20 mg tablet (Lasix) 20 mg PO MOWEFR Fluid 08/24/24 10/27/24 Rx
retention/Swelling #12 tabs
acetaminophen 650 mg 1,300 mg PO Q12H 10/27/24 10/27/24 History
tablet,extended release
prednisone 10 mg tablet 50 mg PO DIRECTED 10/27/24 10/27/24 History
Review of Systems
-
History Source: Patient
All other systems: Negative unless noted
Physical Exam
Vital Signs
Temp Pulse Resp BP Pulse Ox
97.8 F 71 19 136/68 98
10/28/24 07:05 10/28/24 07:05 10/28/24 07:05 10/28/24 07:05 10/28/24 07:05
Lab Results
10/28/24 06:37
10/28/24 06:37
Troponin I < 0.012 ng/ml 10/27/24 19:08
Vif-K-Xklubljenat Pept 256 pg/ml 10/27/24 19:08
Physical Exam
General: Well Developed, Well Nourished and No Apparent Distress
HEENT: Normocephalic, Anicteric and Moist Mucous Membranes
Respiratory: Clear and Non Labored Respirations
Cardiac: S1/S2 and Regular Rhythm
Musculoskeletal: No Clubbing, No Cyanosis and No Edema
Skin: Warm and Dry
Neuro: AO x 3 and Nonfocal/Grossly Intact
Psych: Calm
Impression / Plan
-
PCP: Dr. Aggarwal
Shaker Out: Dr. Lauren
Impression:
Presented with dizziness, SOB
Anemia
CAD
s/p PCI of OM1 with 2.5 x 23 mm Cypher stent and 2.8 x 8 mm Cypher stent proximal edge of initial stent, 08/22/04
s/p PCI of mid Circ to OM1 proximal segment with a 3.0 x 15 mm Xience stent for treatment of in-stent restenosis in the OM1 proximally stented area 09/16/09
s/p PCI of distal edge of OM1 with a 3.0x16 mm Promus stent, Diag-1 with a 2.5 x 16 mm Promus stent, and mid LAD with a 3.5 x 17 mm EluNIR stent 10/29/17
s/p PCI of mid Circ into the large OM1 with placement of a 3.5 x 28 mm Promus stent 11/23/19
s/p PCI of mid RCA with 3.5 x 26 mm Medtronic Michael BENITO 08/24/24
Chronic DAPT with aspirin and Plavix
CKD 3b, baseline Cre 2.0-2.2
HTN
HLD
hypothyroidism
BPH
obesity
Echo 11/16/2019: EF 68%, mild to moderate LVH, stage I diastolic dysfunction, normal RV, mild MR
Echo 08/24/2024: EF 55 to 60%, grade 1 diastolic dysfunction, moderate concentric LVH, mitral sclerosis, mild MR, aortic sclerosis without stenosis, trace AR, mild TR, estimated PAP 20 to 25 mmHg
Plan:
- Presented with worsening shortness of breath and dizziness with exertion.
- Appears euvolemic. proBNP not significantly elevated. Chest x-ray without acute disease. Weight at baseline. Creatinine stable at 2.0. Continues on Lasix 20 mg MWF.
- Anemia noted on labs. Iron studies unremarkable. Patient reports heme test negative last night. Continue workup per primary service.
- No chest pain. Troponin negative x 1. EKG stable, sinus rhythm without any acute ischemic changes noted.
- Continues on aspirin and Plavix following recent PCI of the mid RCA 08/24/2024
- BP stable in hospital, however reports he has had hypotension and orthostasis at home and at cardiac rehab recently.
- Check orthostatic vital signs.
- If hypotension/orthostasis noted, would have low threshold to decrease carvedilol to 6.25 mg twice daily.
- Consider checking echo
- Continue Lipitor and Zetia
HPI: Harpreet is an 79-year-old male with past medical history of CAD with recent stenting of the RCA 07/2024, CKD 3B, hypertension, hyperlipidemia, hypothyroidism, BPH, obesity, and anemia. Presented to the [facility] ER for evaluation of worsening
shortness of breath and dizziness. He states he has chronic dizziness, but over the past few weeks he has had worsening of symptoms to the point where he has significant dizziness and shortness of breath with even walking short distances around his
house. Blood pressures have been on the low side with at home anticardiac rehab, however he has not been able to participate in cardiac rehab over the past week or so due to ongoing diarrhea. He reports diarrhea was felt to be due to his CellCept,
so this was stopped earlier this week and he was placed on steroids. Diarrhea has improved, but he continues to have dizziness and lightheadedness with position change. Denies any symptoms while at rest. He denies any chest pain. He has been
compliant with medications and other than stopping CellCept, has had no medication changes. Weight remains stable, at baseline. Reports no blood in diarrhea and has had no dark black/tarry bowel movements. In ER, was found to be anemic with
hemoglobin as low as 8.4. Chest x-ray negative for acute abnormality. Low extremity ultrasound negative for DVT. Remains in sinus rhythm by ECG with no acute ischemic changes noted. Otherwise, lab work was unremarkable. He was admitted for
further workup and evaluation.
Data Reviewed
-
EKG: Tracing Personally Visualized and interpreted
Radiology: Report Reviewed by me
Ultrasound: Report Reviewed by me
Labs: Labs Reviewed by me
Old Records: Reviewed
[2024-10-28 11:05] VITALS: BP 107/69
[2024-10-28 11:27] VITALS: BP 133/63; BP 134/81; BP 144/67; PULSE 71; PULSE 78; PULSE 81
--- NOTE | 2024-10-28 13:10 | CM ---
Patient seen at bedside.
IA completed
dx: dyspnea
PMH: NSTEMI, CAD, CKD 3B, hypertension, hyperlipidemia, hypothyroidism, BPH, obesity, anemia, bullous pemphigoid
Lives at home with in a 1 story house, 2 steps to enter
states drove self to hospital
PLOF: Independent
DME: [employer]
VN/Rehab in past states does not remember names of agencty/facility
PCP: Micheal Aggarwal
Pharmacy: [facility]
PLAN: home, currently no needs, CM to continue to follow
--- NOTE | 2024-10-28 13:58 | CON.PUL ---
Consultation
Consultation Request
Date/Time Consultation Requested: 10/28/2024 - 1239
Date/Time Consultation Performed: 10/28/2024 - 1320
Requesting Provider: Dr. Mcrae
Performing Provider: Dr. Clay
Reason for Consultation: SOB/respiratory distress
Medical History
-
Chief Complaint: SOB + dizziness
History of Present Illness:
79-year-old male former tobacco smoker with a past medical history of CAD s/p stents to OM1 (~5), and recent NSTEMI s/p BENITO to RCA (08/23/2024), chronic HFpEF, history of COVID-19 (05/2022), BPH, hypothyroidism, hypertension, hyperlipidemia, JEFF on
CPAP, GERD, nephrolithiasis, DM type II with peripheral neuropathy, CKD, and bullous pemphigoid previously on mycophenolate who presents with 'severe' dizziness and shortness of breath. Patient had contacted his PCP on 10/27/2024 due to severe
dizziness and SOB episodes x 2 the day or two prior. He said his CellCept was recently discontinued on 10/24 due to weakness + diarrhea, and he was placed onto prednisone taper but he is was unclear of the dosage. He had no chest pain or
palpitations. He denies any recent change in his diet and was reportedly well-hydrated. Of note, his diarrhea recently improved after CellCept was stopped. At the time of his admission, he was on 40 mg daily with plans to continue taper after an
additional 2 days. In the ER he was afebrile to 98.4 �F, pulse rate 94, respiratory rate 16, BP 152/79 and saturating 98% on room air. Labs showed normal WBC at 9.8, Hb 8.4, creatinine at baseline at 2, troponin negative at <0.012, and proBNP 256.
CXR showed no acute cardiopulmonary process, and lower extremity duplex showed no evidence of DVT. Due to his SOB with respiratory distress, pulmonary service now consulted for additional management/recommendations.
When I saw the patient, he was resting in bed in no acute distress. He says he currently feels good, and he is only getting short of breath with exertion/activity. No diarrhea since this past Wednesday. Currently on room air breathing comfortably.
Denies abdominal pain, nausea, red or black stool, bloody urine, fevers or chills.
Of note, he was recently hospitalized in July 2024 (08/23 - 08/24/2024) after presenting with chest pain, found to have an NSTEMI with LHC revealing a new 90% mid RCA stenosis. BENITO was placed and previous OM stents were patent. Proximal LAD had
diffuse 30-40% stenosis. He continues to follow-up with cardiology with Dr. Lauren, last visit 09/21/2024. Of note, he has a CPAP at home that he uses, and he does not have a lung doctor.
PMHx: CAD s/p multiple stents (OM1 - 2004, RCA - 08/23/2024), chronic HFpEF, Hx of Covid-19 05/2022, cataracts, obesity, BPH, hypothyroidism, hyperlipidemia, hypertension, allergic rhinitis, Hx of herniated cervical disc, JEFF on CPAP, Hx of
gastritis, Graves disease, diverticulosis, pilonidal cyst, lung nodule, IBS, GERD, osteoarthritis, cholelithiasis, nephrolithiasis, colon polyps, DM type II c/b peripheral neuropathy, CKD stage III, cervical/lumbar disc disease, bullous pemphigoid
(previously on mycophenolate)
PSHx: Right shoulder tear repair, right rotator cuff repair 08/2014, carpel tunnel right and left, s/p coronary stents, left rotator cuff repair, bilateral total knee replacements 2003, left total hip replacement, right rotator cuff repair 2002,
thyroid radiation, right hip replacement 2003, left eye cataract removal 03/2023, right eye cataract removal 04/2023, discectomy & spinal fusion C4-5, C6-7 (1999)
Past Medical History
Past Medical History: Other (Above as per HPI)
Past Surgical History: Other (Above as per HPI)
Social History
Tobacco: Former Smoker (Smoked 3 PPD X 18 years (quit at age 32))
Alcohol: Occasional (2-3 alcoholic beverages per month)
Drug: None
Personal:
Living: With Family
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
Family History
Family History: Other (Father: CVA; Mother: during childbirth)
Allergies / Home Medications
Allergies
Allergy/AdvReac Type Severity Reaction Status Date / Time
celecoxib [From Celebrex] Allergy facial Verified 10/27/24 15:49
swelling
hydrocodone Allergy facial Verified 10/27/24 15:49
swelling
NSAIDS (Non-Steroidal Allergy Swelling Verified 10/27/24 15:49
Anti-Inflamma
perindopril erbumine Allergy facial Verified 10/27/24 15:49
[From Aceon] swelling
rofecoxib Allergy Patient Verified 10/27/24 15:49
unaware of
this
allergy
Salicylates * Allergy Patient Verified 10/27/24 15:49
unaware of
this
allergy
tramadol Allergy Unknown Verified 10/27/24 15:49
Home Medications
�Medication �Instructions �Recorded �Confirmed �Last Taken �Type
pantoprazole 40 mg tablet,delayed 40 mg PO HS Gastrointestinal issue 07/29/11 10/27/24 10/26/24 History
release
aspirin 81 mg tablet,delayed 81 mg PO HS Blood clot 10/28/17 10/27/24 10/26/24 History
release prevention/tx
atorvastatin 80 mg tablet 80 mg PO HS High cholesterol 10/28/17 10/27/24 10/26/24 History
clopidogrel 75 mg tablet 75 mg PO DAILY Blood clot 10/28/17 10/27/24 10/26/24 History
prevention/tx
sennosides 8.6 mg tablet (senna) 1 tab PO DAILYPRN PRN constipation 10/28/17 10/27/24 08/20/24 History
tamsulosin 0.4 mg capsule 0.4 mg PO BID Urinary issue 10/28/17 10/27/24 10/27/24 History
ezetimibe 10 mg tablet 10 mg PO HS High cholesterol 11/23/19 10/27/24 10/26/24 History
potassium citrate 10 mEq (1,080 10 meq PO DAILY electrolyte 11/23/19 10/27/24 10/27/24 History
mg) tablet,extended release repletion
betamethasone dipropionate 0.05 % 1 applic topical BID flare up 08/23/24 10/27/24 Unknown History
topical cream
carvedilol 12.5 mg tablet 12.5 mg PO BID Blood Pressure 08/23/24 10/27/24 10/27/24 History
levothyroxine 150 mcg tablet 150 mcg PO MOTUWETHFRSA Thyroid 08/23/24 10/27/24 10/27/24 History
omega 2-fjz-stw-fish oil 60 mg-90 1 cap PO BID Supplement 08/23/24 10/27/24 10/27/24 History
mg-500 mg capsule (Fish Oil)
semaglutide 1 mg/dose (4 mg/3 mL) 1 mg SC FUENTES Diabetes 08/23/24 10/27/24 10/22/24 History
subcutaneous pen injector (Ozempic)
therapeutic multivitamin 1 tab PO DAILY Supplement 08/23/24 10/27/24 10/27/24 History
furosemide 20 mg tablet (Lasix) 20 mg PO MOWEFR Fluid 08/24/24 10/27/24 10/27/24 Rx
retention/Swelling #12 tabs
acetaminophen 650 mg 1,300 mg PO Q12H 10/27/24 10/27/24 10/27/24 History
tablet,extended release
prednisone 10 mg tablet 50 mg PO DIRECTED 10/27/24 10/27/24 10/27/24 History
40 mg
Review of Systems
-
History Source: Patient
All other systems: Negative unless noted
Vitals / Labs / Diagnostic Testing
Vital Signs
Temp Pulse Resp BP Pulse Ox
97.7 F 75 19 107/69 98
10/28/24 11:05 10/28/24 11:05 10/28/24 11:05 10/28/24 11:05 10/28/24 11:05
Lab Data
10/28/24 06:37
10/28/24 06:37
Diagnostic Testing:
Physical Exam
-
HEENT: Normocephalic, Anicteric and Other (Thick neck)
Cardiovascular: S1/S2, Rub (negative) and Peripheral Edema (Trace lower extremity edema bilaterally)
Respiratory: Clear, Wheeze (negative), Rales (negative), Rhonchi (negative) and Non-Labored Respirations
GI: Soft, Distended (Abdominal obesity), Non Tender and Normal Bowel Sounds
Neurology: AO x 3 and Tremors (negative)
Skin: Warm and Dry
General: Respiratory Distress (negative), Comfortable, Chills (negative) and Sweats (negative)
Assessment
-
Assessment: 79-year-old male former tobacco smoker with a past medical history of CAD s/p stents to OM1 (~5), and recent NSTEMI s/p EBNITO to RCA (08/23/2024), chronic HFpEF, history of COVID-19 (05/2022), BPH, hypothyroidism, hypertension,
hyperlipidemia, JEFF, GERD, nephrolithiasis, DM type II with peripheral neuropathy, CKD, and bullous pemphigoid previously on mycophenolate who presents with 'severe' dizziness and shortness of breath. Patient had contacted his PCP on 10/27/2024 due
to severe dizziness and SOB episodes x 2 the day or two prior. He said his CellCept was recently discontinued on 10/24 due to weakness + diarrhea, and he was placed onto prednisone taper but he is was unclear of the dosage. He had no chest pain or
palpitations. He denies any recent change in his diet and was reportedly well-hydrated. Of note, his diarrhea recently improved after CellCept was stopped. At the time of his admission, he was on 40 mg daily with plans to continue taper after an
additional 2 days. In the ER he was afebrile to 98.4 �F, pulse rate 94, respiratory rate 16, BP 152/79 and saturating 98% on room air. Labs showed normal WBC at 9.8, Hb 8.4, creatinine at baseline at 2, troponin negative at <0.012, and proBNP 256.
CXR showed no acute cardiopulmonary process, and lower extremity duplex showed no evidence of DVT. Due to his SOB with respiratory distress, pulmonary service now consulted for additional management/recommendations.
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
gastritis, Graves disease, diverticulosis, pilonidal cyst, lung nodule, IBS, GERD, osteoarthritis, cholelithiasis, nephrolithiasis, colon polyps, DM type II c/b peripheral neuropathy, CKD stage III, cervical/lumbar disc disease, bullous pemphigoid
(previously on mycophenolate)
Impression:
#Dizziness/?vertigo with SOB prior to arrival
#Acute on chronic anemia (baseline Hb 10.5�12g/dL)
#CKD (baseline creatinine 2�2.2)
#Recent NSTEMI with hazy 90% mid RCA stenosis s/p PCI with BENITO placement
#Chronic HFpEF (not in an acute exacerbation currently)
#History of COVID-19 (May 2022)
#JEFF on CPAP
#Bullous pemphigoid previously on mycophenolate, currently on prednisone taper started ALARM INVESTIGATOR
#Hypothyroidism
#Obesity currently on Ozempic
#BPH
# Former tobacco smoker � smoked 3 PPD X 18 years (quit at age 32)
Plan:
- Unclear cause of his dizziness + SOB episodes; mycophenolate is associated with a 34% chance of dizziness and a 31-44% chance of dyspnea, and even though he recently stopped this medication, the half-life is increased given his CKD
- It is interesting though that he has never had the symptoms before while being on mycophenolate
- In terms of serious conditions that can cause his symptoms, his troponin is negative, his CXR shows no evidence of pneumonia, no pneumothorax, no significant atelectasis, and he remains on room air saturating 98%. Very low index of suspicion for
an acute PE given that he is not tachycardic nor hypoxic - regardless, VQ scan is pending and we will follow this up
- The only thing that I see that can cause his fatigue with SOB is he is slightly anemic, more so than his baseline --> would consult GI to evaluate him for colonoscopy
- Continue to maintain SpO2 >90-94% with supplemental O2 as needed
- prn nebulized bronchodilators - not currently bronchospastic
- Incentive spirometer encouraged q1hr while awake
- PT/OT recommended
- Cardiology consulted, and symptoms of SOB/fatigue does not appear cardiac related
- Given his recent stent, need to continue ASA + Plavix; continue with high intensity Lipitor
- There have been reports of significant fatigue with patients who take Plavix; defer changing to Brilinta to cardiology while we await evaluate further for this possible GI source of anemia
- Replete electrolytes with K>4, Mg>2
- Trend H/H and transfuse if needed to keep Hb>7g/dL; keep plt>20k, unless there is concern for bleeding then keep plt>50k
- Maintain euglycemia with goal BG >100 and <180
- DVT ppx: Would consider holding heparin subcu for now while we workup his anemia further
Pulmonary service will continue to briefly follow along. Outpatient pulmonary office follow-up will be arranged for full PFTs and symptom management/monitoring. Of note, given that he quit smoking >15 years ago, he does not qualify for lung cancer
screening.
Data:
CXR 10/27/2024: No acute cardiopulmonary process.
TTE 08/24/2024:
Normal left ventricular systolic function with moderate left concentric
ventricular hypertrophy
Left ventricular ejection fraction by volumetric assessment 55-60%
Grade 1 diastolic dysfunction with elevated left atrial filling pressures
Dilated left atrium
Mitral sclerosis with mild mitral regurgitation
Trileaflet, sclerotic aortic valve without significant stenosis and trace
aortic regurgitation
Mild tricuspid regurgitation
Estimated pulmonary artery pressure of 20-25 mmHg assuming a right atrial
pressure of 3 mmHg.
No pericardial effusion.
Normal aortic root and proximal ascending aorta by BSA. Sinus of Valsalva 3.5
cm, sinotubular junction 3.4 cm, proximal ascending aorta 3.5 cm.
Compared to prior study dated 11/16/2019, mitral and aortic valves are now
sclerotic
Total time spent today was 59 minutes for this encounter. Time includes reviewing laboratory test/imaging results, reviewing pertinent medical records, obtaining and reviewing medical history, performing an appropriate exam, ordering medications,
tests and procedures. Time also includes documentation of this encounter, coordinating patient care and communicating with other healthcare professionals. Total time does not include separately billed tests performed on this date of service.
[2024-10-28 15:05] VITALS: BP 111/71
--- NOTE | 2024-10-28 17:18 | W.PN.HOSP.TC ---
Today's Communication/Plan
-
will check stool for OB, retic ct, Haptoglobin, LDH and the VQ scan
Assessment / Plan
Assessment / Plan
# Progressive exertional dyspnea, lightheadedness and near syncope unclear etiology likely multifactorial secondary to orthostatic hypotension secondary to Lasix and worsening anemia
-Patient hypertensive here
- Chest x-ray shows no acute cardiopulmonary process
- Cardiac BNP 256
- Recent echocardiogram from July 2024 shows EF of 55 to 60%, LVH
- Check orthostatic vital signs
- Was considering the possibility of pulmonary embolism although not high pretest probability
- D-dimer will likely be elevated due to chronic medical conditions, will do VQ scan, unlikely, but will need to be ruled out
-Difficult situation if orthostatic since resting blood pressure is elevated
- cardiology consult noted, does not believe dyspnea is cardiac related
# Worsening of chronic normocytic anemia likely secondary to CKD
-Doubt that anemia on its own should be responsible for symptoms although it could be contributing
- No bloody stool or black stool, will recheck
Hgb now 8.4
- iron studies Fe sat 32%, Ferritin 134, B12 809 and folate 10.8
History of CAD
Recent NSTEMI status post PCI of RCA 08/23/24
- Continue aspirin, Plavix, statin
- Continue Coreg
Lower extremity edema
- Continue Lasix
CKD 3B
- Renal function at baseline
Essential hypertension
Hyperlipidemia
- Continue statin, Zetia
Hypothyroidism
- Continue levothyroxine
BPH
- Continue tamsulosin
Obesity
- On Ozempic
Bullous pemphigoid
- Continue prednisone taper, has 2 more days of 40 mg
- Off CellCept due to recent diarrhea which is resolved
will check stool for OB, retic ct, Haptoglobin, LDH and the VQ scan
discussed with Dr. Quintero, he would like the above lab studies and will need follow up in office, probable outpt Bone Marrow
Full code
DVT prophylaxis�heparin
Cardiac diet
Anticipated Discharge: 24 - 48 hours
Subjective/Interval History
-
Date of Service: October 28, 2024
Shortness of Breath
Objective Data
-
Labs:
Laboratory Results
10/28/24
06:37
WBC 9.8
Hgb 8.4 L
Hct 25.0 L
Plt Count 163
Sodium 142
Potassium 3.8
Chloride 109 H
Carbon Dioxide 23
BUN 44 H
Creatinine 2.0 H
Glucose 115 H
Calcium 9.4
Total Bilirubin 0.4
AST 19
ALT 19
Alkaline Phosphatase 42
Vital Signs:
Vital Signs
Temp Pulse Resp BP Pulse Ox
97.6 F 78 18 111/71 97
10/28/24 15:05 10/28/24 15:05 10/28/24 15:05 10/28/24 15:05 10/28/24 15:05
I&O
10/27/24 10/28/24 10/29/24
06:59 06:59 06:59
Intake Total 1380 / 1380
Balance 1380 / 1380
Review of Systems
-
History Source: Patient and Coordinated Provider
Constitutional: Reports No Symptoms; Denies Fever
EENT: Reports No Symptoms Reported
Respiratory: Reports Trouble Breathing
Cardiac: Denies Chest Pain
Abdomen/GI: Reports No Symptoms
Genitourinary: Reports No Symptoms
Musculoskeletal: Reports No Symptoms
Physical Exam
-
General: Well Developed, Well Nourished and No Apparent Distress
HEENT: Normocephalic, Atraumatic and Moist Mucous Membranes
Respiratory: Clear to Auscultation; Negative Wheezes, Rales or Rhonchi
Cardiac: Regular Rhythm, S1/S2 and Murmur (1/6 apical m)
GI: Soft, Nontender and Nondistended
Musculoskeletal: No Clubbing, No Cyanosis and No Edema
[2024-10-28] MEDS: PROTONIX 40 MG PO (22:00)
[2024-10-28] MEDS: LIPITOR 80 MG PO (22:00)
[2024-10-28] MEDS: ZETIA 10 MG PO (22:00)
[2024-10-28] MEDS: ASPIR LOW (ENTERIC COATED) 81 MG PO (22:01)
[2024-10-28 23:00] VITALS: BP 149/79
[2024-10-29 03:00] VITALS: BP 160/80
[2024-10-29 06:00] VITALS: BMI 36.1
[2024-10-29 07:10] VITALS: BP 153/86
[2024-10-29 07:27] LABS: Blood Urea Nitrogen 45 mg/dl (9-20); Estimated Creatinine Clearance 51 ml/min; Glucose 103 mg/dl (70-99)
[2024-10-29 07:28] LABS: Calcium 9.7 mg/dl (8.4-10.2); Carbon Dioxide 24 mmol/L (22-30); Chloride 108 mmol/L (98-107); LDH 174 U/L (120-246); Potassium 3.9 mmol/L (3.5-5.1); Sodium 142 mmol/L (135-145); eGFR 40.25
[2024-10-29 08:04] LABS: % Basophils 0.2 % (0-2); % Eosinophils 0.2 % (0-6); % Immature Granulocytes 2.5 % (0-0.5); % Lymphocytes 8.9 % (20.5-51.1); % Monocytes 5.5 % (1.7-9.3); % Neutrophils 82.7 % (42.2-75.2); Absolute Immature Granulocytes 0.2 10^3/uL (0-0.05); Absolute Lymphocytes 0.8 10^3/uL (1.2-3.4); Absolute Monocytes 0.5 10^3/uL (0.1-0.6); Absolute Neutrophils 7.6 10^3/uL (1.4-6.5); Hematocrit 25.7 % (39.0-52.0); Hemoglobin 8.7 g/dL (13.0-18.0); Mean Corp Hgb Conc. 33.9 g/dL (33.0-37.0); Mean Corpuscular Hgb 30.4 pg (27.0-31.0); Mean Corpuscular Volume 89.9 fL (80.0-94.0); Mean Platelet Volume 9.9 fL (7.4-10.4); Nucleated Red Blood Cells % 0 % (-); Platelet Count 169 10^3/uL (130-400); Red Blood Cell Count 2.86 10^6/uL (4.70-6.10); Red Cell Dist. Width 12.4 % (11.5-14.5); Reticulocyte Count 1.8 % (0.4-2.8); White Blood Cell Count 9.1 10^3/uL (4.8-10.8)
[2024-10-29] MEDS: COREG 12.5 MG PO (08:30)
[2024-10-29] MEDS: PLAVIX 75 MG PO (08:30)
[2024-10-29] MEDS: FLOMAX 0.4 MG PO (08:30)
[2024-10-29] MEDS: DELTASONE 40 MG PO (08:30)
[2024-10-29] MEDS: THERAGRAN 1 TABLET PO (08:30)
[2024-10-29] MEDS: UROCIT-K 10 MEQ PO (08:30)
[2024-10-29] MEDS: HEPARIN 5000 UNITS SC (08:31)
[2024-10-29] MEDS: FLUOCINONIDE 0.05% CREAM 1 APPLIC TOPICAL (08:32)
[2024-10-29] MEDS: TYLENOL 500 MG PO ×2 (08:32→13:04)
--- NOTE | 2024-10-29 10:23 | W.PN.CARDCBS ---
Today's Communication / Plan
-
Doubt significant acute cardiac component to his current presentation.
Will sign off, please call us back if we can be of further assistance
Impression / Plan
-
PCP: Dr. Aggarwal
First Aid Attendant: Dr. Lauren
Impression:
Presented with dizziness, SOB
Anemia
CAD
s/p PCI of OM1 with 2.5 x 23 mm Cypher stent and 2.8 x 8 mm Cypher stent proximal edge of initial stent, 08/22/04
s/p PCI of mid Circ to OM1 proximal segment with a 3.0 x 15 mm Xience stent for treatment of in-stent restenosis in the OM1 proximally stented area 09/16/09
s/p PCI of distal edge of OM1 with a 3.0x16 mm Promus stent, Diag-1 with a 2.5 x 16 mm Promus stent, and mid LAD with a 3.5 x 17 mm EluNIR stent 10/29/17
s/p PCI of mid Circ into the large OM1 with placement of a 3.5 x 28 mm Promus stent 11/23/19
s/p PCI of mid RCA with 3.5 x 26 mm Medtronic Michael BENITO 08/24/24
Chronic DAPT with aspirin and Plavix
CKD 3b, baseline Cre 2.0-2.2
HTN
HLD
hypothyroidism
BPH
obesity
Echo 11/16/2019: EF 68%, mild to moderate LVH, stage I diastolic dysfunction, normal RV, mild MR
Echo 08/24/2024: EF 55 to 60%, grade 1 diastolic dysfunction, moderate concentric LVH, mitral sclerosis, mild MR, aortic sclerosis without stenosis, trace AR, mild TR, estimated PAP 20 to 25 mmHg
Plan:
Presented with worsening shortness of breath and dizziness with exertion.
Etiology of his shortness of breath is not yet clear. Has been slowly progressive over the past month and also associated with a sensation of marked generalized fatigue, even at rest.
Etiology may be multifactorial. It does not appear that heart failure or unstable coronary syndrome is playing a role
It does not appear that heart failure or unstable coronary syndrome is playing a role
ECG is without change, troponin is undetectable and proBNP is not elevated. Chest x-ray is without heart failure findings. Peripheral venous ultrasound shows no DVT.
Euvolemic by exam
At present it does not appear that cardiac etiology is playing a major role.
Progressive anemia (baseline hemoglobin has been approximately 11 g/dl, 10 in July 2024 and now 8.4). Reportedly he is heme-negative.
recommend ongoing evaluation for his anemia.
Iron studies unremarkable, MCV normal. Patient reports heme test negative last night.
He did mention some dizziness at home and at cardiac rehab recently
orthostatic vital signs find that he is not orthostatic.
Okay to treat hypertension
Coronary artery disease history as noted, currently unlikely that he has unstable coronary syndrome.
Continue aspirin and Plavix following recent PCI of the mid RCA 08/24/2024 (while anemic, reportedly he is heme-negative, MCV normal and iron studies show he is not iron deficient)
Continue Lipitor and Zetia
Will sign off, please call us back if we can be of any further assistance
-
HPI: Harpreet is an 79-year-old male with past medical history of CAD with recent stenting of the RCA 07/2024, CKD 3B, hypertension, hyperlipidemia, hypothyroidism, BPH, obesity, and anemia. Presented to the [facility] ER for evaluation of worsening
shortness of breath and dizziness. He states he has chronic dizziness, but over the past few weeks he has had worsening of symptoms to the point where he has significant dizziness and shortness of breath with even walking short distances around his
house. Blood pressures have been on the low side with at home anticardiac rehab, however he has not been able to participate in cardiac rehab over the past week or so due to ongoing diarrhea. He reports diarrhea was felt to be due to his CellCept,
so this was stopped earlier this week and he was placed on steroids. Diarrhea has improved, but he continues to have dizziness and lightheadedness with position change. Denies any symptoms while at rest. He denies any chest pain. He has been
compliant with medications and other than stopping CellCept, has had no medication changes. Weight remains stable, at baseline. Reports no blood in diarrhea and has had no dark black/tarry bowel movements. In ER, was found to be anemic with
hemoglobin as low as 8.4. Chest x-ray negative for acute abnormality. Low extremity ultrasound negative for DVT. Remains in sinus rhythm by ECG with no acute ischemic changes noted. Otherwise, lab work was unremarkable. He was admitted for
further workup and evaluation.
Progress Note - First Aid Attendant
Subjective
Date of Service: October 29, 2024
Patient is off the floor at present
Objective
Labs:
10/29/24 06:07
10/29/24 06:07
Labs
Hgb 8.7 g/dL (13.0-18.0) L 10/29/24 06:07
Hct 25.7 % (39.0-52.0) L 10/29/24 06:07
Plt Count 169 10^3/uL (130-400) 10/29/24 06:07
Sodium 142 mmol/L (135-145) 10/29/24 06:07
Potassium 3.9 mmol/L (3.5-5.1) 10/29/24 06:07
BUN 45 mg/dl (9-20) H 10/29/24 06:07
Creatinine 1.7 mg/dL (0.7-1.3) H 10/29/24 06:07
Glucose 103 mg/dl (70-99) H 10/29/24 06:07
Troponins
10/27/24
19:08
Troponin I < 0.012
Vital Signs and I&O:
Vital Signs
Temp Pulse Resp BP Pulse Ox
97.9 F 68 16 153/86 99
10/29/24 07:10 10/29/24 08:30 10/29/24 07:10 10/29/24 08:30 10/29/24 07:10
Vital Signs
Temp Pulse Resp BP Pulse Ox
97.9 F 68 16 153/86 99
10/29/24 07:10 10/29/24 08:30 10/29/24 07:10 10/29/24 08:30 10/29/24 07:10
Intake & Output
10/27/24 10/28/24 10/29/24 10/30/24
06:59 06:59 06:59 06:59
Intake Total 1380 / 1380
Balance 1380 / 1380
Physical Exam
Physical Exam
Patient is off the floor at present
[2024-10-29 11:55] VITALS: BP 161/83
--- NOTE | 2024-10-29 13:20 | W.PN.PUL3 ---
Today's Communication / Plan
-
Recommend outpatient GI evaluation
OOB as tolerated
Continue DAPT with Plavix + ASA
If he does eventually get a EGD +/- colonoscopy then no source of anemia is found, can consider changing Plavix to Brilinta as there have been reports of Plavix causing fatigue
Patient is being prepared for discharge home today. No additional recommendations at this time. Pulmonary service will now sign off. Outpatient pulmonary office follow-up will be arranged. Please reconsult if there are any additional
questions/concerns, or if patient's respiratory status deteriorates.
Assessment
-
Assessment: 79-year-old male former tobacco smoker with a past medical history of CAD s/p stents to OM1 (~5), and recent NSTEMI s/p BENITO to RCA (08/23/2024), chronic HFpEF, history of COVID-19 (05/2022), BPH, hypothyroidism, hypertension,
hyperlipidemia, JEFF, GERD, nephrolithiasis, DM type II with peripheral neuropathy, CKD, and bullous pemphigoid previously on mycophenolate who presents with 'severe' dizziness and shortness of breath. Patient had contacted his PCP on 10/27/2024 due
to severe dizziness and SOB episodes x 2 the day or two prior. He said his CellCept was recently discontinued on 10/24 due to weakness + diarrhea, and he was placed onto prednisone taper but he is was unclear of the dosage. He had no chest pain or
palpitations. He denies any recent change in his diet and was reportedly well-hydrated. Of note, his diarrhea recently improved after CellCept was stopped. At the time of his admission, he was on 40 mg daily with plans to continue taper after an
additional 2 days. In the ER he was afebrile to 98.4 �F, pulse rate 94, respiratory rate 16, BP 152/79 and saturating 98% on room air. Labs showed normal WBC at 9.8, Hb 8.4, creatinine at baseline at 2, troponin negative at <0.012, and proBNP 256.
CXR showed no acute cardiopulmonary process, and lower extremity duplex showed no evidence of DVT. Due to his SOB with respiratory distress, pulmonary service now consulted for additional management/recommendations.
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
gastritis, Graves disease, diverticulosis, pilonidal cyst, lung nodule, IBS, GERD, osteoarthritis, cholelithiasis, nephrolithiasis, colon polyps, DM type II c/b peripheral neuropathy, CKD stage III, cervical/lumbar disc disease, bullous pemphigoid
(previously on mycophenolate)
Impression:
#Dizziness/?vertigo with SOB prior to arrival
#Acute on chronic anemia (baseline Hb 10.5�12g/dL)
#CKD (baseline creatinine 2�2.2)
#Recent NSTEMI with hazy 90% mid RCA stenosis s/p PCI with BENITO placement
#Chronic HFpEF (not in an acute exacerbation currently)
#History of COVID-19 (May 2022)
#JFEF on CPAP
#Bullous pemphigoid previously on mycophenolate, currently on prednisone taper started CLINICAL PHARMACY SPECIALIST
#Hypothyroidism
#Obesity currently on Ozempic
#BPH
# Former tobacco smoker � smoked 3 PPD X 18 years (quit at age 32)
Plan:
- Unclear cause of his dizziness + SOB episodes; mycophenolate is associated with a 34% chance of dizziness and a 31-44% chance of dyspnea, and even though he recently stopped this medication, the half-life is increased given his CKD
- It is interesting though that he has never had the symptoms before while being on mycophenolate
- In terms of serious conditions that can cause his symptoms, his troponin is negative, his CXR shows no evidence of pneumonia, no pneumothorax, no significant atelectasis, and he remains on room air saturating 98%. Very low index of suspicion for
an acute PE given that he is not tachycardic nor hypoxic - regardless, VQ scan is pending and we will follow this up
- The only thing that I see that can cause his fatigue with SOB is he is slightly anemic, more so than his baseline --> would consult GI to evaluate him for colonoscopy
- Thankfully his Hb is improved today at 8.7 from 8.4 on admission. He is not actively bleeding with no melena or red stool seen, also no hematuria, nosebleed or bloody cough
- Continue to maintain SpO2 >90-94% with supplemental O2 as needed
- prn nebulized bronchodilators - not currently bronchospastic
- Incentive spirometer encouraged q1hr while awake
- PT/OT
- Cardiology consulted, and symptoms of SOB/fatigue does not appear cardiac related
- Given his recent stent, need to continue ASA + Plavix; continue with high intensity Lipitor
- There have been reports of significant fatigue with patients who take Plavix; defer changing to Brilinta to cardiology while we await evaluate further for this possible GI source of anemia
- Replete electrolytes with K>4, Mg>2
- Trend H/H and transfuse if needed to keep Hb>7g/dL; keep plt>20k, unless there is concern for bleeding then keep plt>50k
- Maintain euglycemia with goal BG >100 and <180
- DVT ppx: SCDs
Outpatient pulmonary office follow-up will be arranged for full PFTs and symptom management/monitoring. Of note, given that he quit smoking >15 years ago, he does not qualify for lung cancer screening.
Patient is being prepared for discharge home today. No additional recommendations at this time. Pulmonary service will now sign off. Thank you for allowing us to be involved in the care of this patient. Please reconsult if there are any
additional questions/concerns, or if patient's respiratory status deteriorates.
Data:
CXR 10/27/2024: No acute cardiopulmonary process.
TTE 08/24/2024:
Normal left ventricular systolic function with moderate left concentric
ventricular hypertrophy
Left ventricular ejection fraction by volumetric assessment 55-60%
Grade 1 diastolic dysfunction with elevated left atrial filling pressures
Dilated left atrium
Mitral sclerosis with mild mitral regurgitation
Trileaflet, sclerotic aortic valve without significant stenosis and trace
aortic regurgitation
Mild tricuspid regurgitation
Estimated pulmonary artery pressure of 20-25 mmHg assuming a right atrial
pressure of 3 mmHg.
No pericardial effusion.
Normal aortic root and proximal ascending aorta by BSA. Sinus of Valsalva 3.5
cm, sinotubular junction 3.4 cm, proximal ascending aorta 3.5 cm.
Compared to prior study dated 11/16/2019, mitral and aortic valves are now
sclerotic
Total time spent today was 28 minutes for this encounter. Time includes reviewing laboratory test/imaging results, reviewing pertinent medical records, obtaining and reviewing medical history, performing an appropriate exam, ordering medications,
tests and procedures. Time also includes documentation of this encounter, coordinating patient care and communicating with other healthcare professionals. Total time does not include separately billed tests performed on this date of service.
Subjective Data
-
Date of Service:
Date of Service: October 29, 2024
Chief Complaint: Pulmonary Follow Up
Subjective:
Patient seen earlier in the afternoon (late note entry). He feels well, eager to go home. No shortness of breath, chest pain, fevers or chills.
Review of Systems
General: Other (Negative)
Objective Data
Data Reviewed
Vital Signs / I&O / Oxygen:
Vital Signs
Temp Pulse Resp BP Pulse Ox
97.9 F 68 16 153/86 99
10/29/24 07:10 10/29/24 08:30 10/29/24 07:10 10/29/24 08:30 10/29/24 07:10
Intake and Output
10/28/24 10/29/24 10/30/24
06:59 06:59 06:59
Intake Total 1380 / 1380
Balance 1380 / 1380
SaO2 99
Physical Exam
General: Respiratory Distress (negative), Comfortable, Chills (negative) and Sweats (negative)
HEENT: Normocephalic and Anicteric
Cardiovascular: S1-S2 and Peripheral Edema (negative)
Respiratory: Clear, Wheeze (negative), Crackles (negative), Rhonchi (negative) and Non-Labored Respirations
GI: Soft, Distended (Abdominal obesity), Non Tender and Normal Bowel Sounds
Neurology: AO x 3 and Tremors (negative)
Skin: Warm, Dry, Cyanosis (negative) and Jaundice (negative)
Labs/Micro/Reports
Lab Data
10/29/24 06:07
10/29/24 06:07
[2024-10-29 15:10] VITALS: BP 129/69; BP 133/70; BP 139/73; PULSE 100; PULSE 81; PULSE 89
--- NOTE | 2024-10-29 16:58 | W.PN.HOSP.TC ---
Today's Communication/Plan
-
dc now
Assessment / Plan
Assessment / Plan
# Progressive exertional dyspnea, lightheadedness and near syncope unclear etiology likely multifactorial secondary to orthostatic hypotension secondary to Lasix and worsening anemia
-Patient hypertensive here
- Chest x-ray shows no acute cardiopulmonary process
- Cardiac BNP 256
- Recent echocardiogram from July 2024 shows EF of 55 to 60%, LVH
- Check orthostatic vital signs
- Was considering the possibility of pulmonary embolism although not high pretest probability
- D-dimer will likely be elevated due to chronic medical conditions, will do VQ scan, unlikely, but will need to be ruled out
-Difficult situation if orthostatic since resting blood pressure is elevated
- cardiology consult noted, does not believe dyspnea is cardiac related
Lung Scan - low probability for PE
# Worsening of chronic normocytic anemia likely secondary to CKD
-Doubt that anemia on its own should be responsible for symptoms although it could be contributing
- No bloody stool or black stool, no further BM past 24 hrs
Hgb now 8.4
- iron studies Fe sat 32%, Ferritin 134, B12 809 and folate 10.8
Normal Fe studies with normocytic, normochromic anemia not consistent with Fe defic anemia, would be concerned about marrow suppression anemia and thus would recommend to start with Hematology for eval of anemia with possible GI evaluation to follow
History of CAD
Recent NSTEMI status post PCI of RCA 08/23/24
- Continue aspirin, Plavix, statin
- Continue Coreg
Lower extremity edema
- Continue Lasix
CKD 3B
- Renal function at baseline
Essential hypertension
Hyperlipidemia
- Continue statin, Zetia
Hypothyroidism
- Continue levothyroxine
BPH
- Continue tamsulosin
Obesity
- On Ozempic
Bullous pemphigoid
- Continue prednisone taper, has 2 more days of 40 mg
- Off CellCept due to recent diarrhea which is resolved
discussed with Dr. Quintero, he would like the above lab studies and will need follow up in office, probable outpt Bone Marrow
Full code
DVT prophylaxis�heparin
Cardiac diet
More than 30 minutes spent in discharge including
Final examination of the patient
Summarizing hospital stay
Instructions for continuing care to all relevant caregivers
Preparation of discharge records, prescriptions, and referral forms
Total time spent (in minutes): 45
Anticipated Discharge: Today
Subjective/Interval History
-
Date of Service: October 29, 2024
Feels well, would like to go home today
Objective Data
-
Labs:
Laboratory Results
10/29/24
06:07
WBC 9.1
Hgb 8.7 L
Hct 25.7 L
Plt Count 169
Sodium 142
Potassium 3.9
Chloride 108 H
Carbon Dioxide 24
BUN 45 H
Creatinine 1.7 H
Glucose 103 H
Calcium 9.7
Vital Signs:
Vital Signs
Temp Pulse Resp BP Pulse Ox
98.4 F 81 16 139/73 98
10/29/24 15:10 10/29/24 15:10 10/29/24 15:10 10/29/24 15:10 10/29/24 15:10
I&O
10/28/24 10/29/24 10/30/24
06:59 06:59 06:59
Intake Total 1380 / 1380
Balance 1380 / 1380
Review of Systems
-
History Source: Patient and Coordinated Provider
Constitutional: Reports No Symptoms; Denies Fever
EENT: Reports No Symptoms Reported
Respiratory: Reports Trouble Breathing
Cardiac: Denies Chest Pain
Abdomen/GI: Reports No Symptoms
Genitourinary: Reports No Symptoms
Musculoskeletal: Reports No Symptoms
Physical Exam
-
General: Well Developed, Well Nourished and No Apparent Distress
HEENT: Normocephalic, Atraumatic and Moist Mucous Membranes
Respiratory: Clear to Auscultation; Negative Wheezes, Rales or Rhonchi
Cardiac: Regular Rhythm, S1/S2 and Murmur (1/6 apical m)
GI: Soft, Nontender and Nondistended
Musculoskeletal: No Clubbing, No Cyanosis and No Edema
--- NOTE | 2024-10-29 17:57 | W.DS.TRANS ---
DC Summary - Pharmacy Scheduler
-
Discharge Instructions:
Discharge Diagnosis/Procedures Dyspnea due to Anemia
Diet Regular
Activity No strenuous activity
Driving Restrictions No driving for 24 hours
Bathing Restrictions None
Blood Work CBC, CMP in 1-2 weeks
Instructions:
Stand-Alone Forms:
Changes to Home Medications: No
Discharge Medications:
DC Medications w/original date entered in [facility]
pantoprazole 40 mg tablet,delayed release 40 mg PO HS Gastrointestinal issue 07/29/11
aspirin 81 mg tablet,delayed release 81 mg PO HS Blood clot prevention/tx 10/28/17
atorvastatin 80 mg tablet 80 mg PO HS High cholesterol 10/28/17
clopidogrel 75 mg tablet 75 mg PO DAILY Blood clot prevention/tx 10/28/17
sennosides 8.6 mg tablet (senna) 1 tab PO DAILYPRN PRN constipation 10/28/17
tamsulosin 0.4 mg capsule 0.4 mg PO BID Urinary issue 10/28/17
ezetimibe 10 mg tablet 10 mg PO HS High cholesterol 11/23/19
potassium citrate 10 mEq (1,080 mg) tablet,extended release 10 meq PO DAILY electrolyte repletion 11/23/19
betamethasone dipropionate 0.05 % topical cream 1 applic topical BID flare up 08/23/24
carvedilol 12.5 mg tablet 12.5 mg PO BID Blood Pressure 08/23/24
levothyroxine 150 mcg tablet 150 mcg PO MOTUWETHFRSA Thyroid 08/23/24
omega [id number]-[id number]-fish oil 60 mg-90 mg-500 mg capsule (Fish Oil) 1 cap PO BID Supplement 08/23/24
semaglutide 1 mg/dose (4 mg/3 mL) subcutaneous pen injector (Ozempic) 1 mg SC FUENTES Diabetes 08/23/24
therapeutic multivitamin 1 tab PO DAILY Supplement 08/23/24
furosemide 20 mg tablet (Lasix) 20 mg PO MOWEFR Fluid retention/Swelling #12 tabs 08/24/24
acetaminophen 650 mg tablet,extended release 1,300 mg PO Q12H 10/27/24
prednisone 10 mg tablet 10 mg PO DAILY #0 tabs 10/29/24
prednisone 10 mg tablet 30 mg (3 x 10 mg) PO DAILY #0 tabs 10/29/24
prednisone 20 mg tablet 20 mg PO DAILY #0 tabs 10/29/24
Home Medication Changes
Pending Results: No
== END 2024-10-29 18:18 | disposition home or self-care (01) | DRG 812 ==
LOC: 3 WEST ACU 21:54
PROVIDERS: ADMITTING PHYSICIAN Hospitalist; ATTENDING PHYSICIAN Internal Medicine; CONSULT PHYSICIAN Internal Medicine Cardiovascular Disease; CONSULT PHYSICIAN Internal Medicine Critical Care Medicine; EMERGENCY PHYSICIAN Emergency Medicine; FAMILY PHYSICIAN Internal Medicine
DX: D64.9 Anemia, unspecified (principal); L12.0 Bullous pemphigoid; I13.0 Hypertensive heart and chronic kidney disease with heart failure and stage 1 through stage 4 chronic kidney disease, or unspecified chronic kidney disease; I50.32 Chronic diastolic (congestive) heart failure; I25.10 Atherosclerotic heart disease of native coronary artery without angina pectoris; E05.00 Thyrotoxicosis with diffuse goiter without thyrotoxic crisis or storm; E66.9 Obesity, unspecified; N18.32 Chronic kidney disease, stage 3b; G47.33 Obstructive sleep apnea (adult) (pediatric); E11.22 Type 2 diabetes mellitus with diabetic chronic kidney disease; E03.9 Hypothyroidism, unspecified; I25.2 Old myocardial infarction; Z95.5 Presence of coronary angioplasty implant and graft; Z68.36 Body mass index [BMI] 36.0-36.9, adult; Z87.891 Personal history of nicotine dependence; Z79.02 Long term (current) use of antithrombotics/antiplatelets; Z79.82 Long term (current) use of aspirin; Z86.16 Personal history of COVID-19
CPT/HCPCS: 71046; 78582; 80048; 80053; 82607; 82728; 82746; 83010; 83540; 83550; 83615; 83880; 84484; 85025; 85045; 93005; 93970; 94660; 94760; 99285; A9540; A9567

== ENCOUNTER → 2024-11-03 12:18 | Outpatient (REF) | payer BC, SELFPAY ==
[2024-11-03 13:22] LABS: % Basophils 0.2 % (0-2); % Immature Granulocytes 4.3 % (0-0.5); % Lymphocytes 11.1 % (20.5-51.1); % Monocytes 6.7 % (1.7-9.3); % Neutrophils 76.7 % (42.2-75.2); Absolute Eosinophils 0.1 10^3/uL (0-0.7); Absolute Immature Granulocytes 0.5 10^3/uL (0-0.05); Absolute Lymphocytes 1.2 10^3/uL (1.2-3.4); Absolute Monocytes 0.7 10^3/uL (0.1-0.6); Absolute Neutrophils 8.4 10^3/uL (1.4-6.5); Hematocrit 29.4 % (39.0-52.0); Hemoglobin 9.5 g/dL (13.0-18.0); Mean Corp Hgb Conc. 32.3 g/dL (33.0-37.0); Mean Corpuscular Hgb 30.3 pg (27.0-31.0); Mean Corpuscular Volume 93.6 fL (80.0-94.0); Mean Platelet Volume 9.4 fL (7.4-10.4); Nucleated Red Blood Cells % 0 % (-); Platelet Count 137 10^3/uL (130-400); Red Blood Cell Count 3.14 10^6/uL (4.70-6.10); Red Cell Dist. Width 13.8 % (11.5-14.5); White Blood Cell Count 10.9 10^3/uL (4.8-10.8)
[2024-11-03 15:58] LABS: ALT (SGPT) 39 U/L (0-50); AST (SGOT) 27 U/L (17-59); Albumin 3.8 g/dl (3.5-5.0); Alkaline Phosphatase 51 U/L (38-126); Blood Urea Nitrogen 41 mg/dl (9-20); Calcium 9.4 mg/dl (8.4-10.2); Carbon Dioxide 28 mmol/L (22-30); Chloride 107 mmol/L (98-107); Glucose 82 mg/dl (70-99); Potassium 4.7 mmol/L (3.5-5.1); Sodium 142 mmol/L (135-145); Total Bilirubin 0.8 mg/dl (0.2-1.3); Total Protein 5.9 g/dl (6.3-8.2); eGFR 37.58
== END ==
LOC: REG 12:18
PROVIDERS: ATTENDING PHYSICIAN Internal Medicine; OTHER PHYSICIAN Internal Medicine Cardiovascular Disease; REFERRING PHYSICIAN Specialist
DX: I10 Essential (primary) hypertension (principal); E11.22 Type 2 diabetes mellitus with diabetic chronic kidney disease
CPT/HCPCS: 36415; 80053; 85025

== ENCOUNTER → 2025-02-16 10:08 | Outpatient (REF) | payer BC, SELFPAY ==
[2025-02-16 11:02] LABS: Hematocrit 33.4 % (39.0-52.0); Hemoglobin 10.6 g/dL (13.0-18.0); Mean Corp Hgb Conc. 31.7 g/dL (33.0-37.0); Mean Corpuscular Volume 93.6 fL (80.0-94.0); Nucleated Red Blood Cells % 0 % (-); Platelet Count 147 10^3/uL (130-400); Red Cell Dist. Width 13.4 % (11.5-14.5)
[2025-02-16 11:35] LABS: ALT (SGPT) 22 U/L (0-50); AST (SGOT) 22 U/L (17-59); Albumin 3.8 g/dl (3.5-5.0); Alkaline Phosphatase 67 U/L (38-126); Blood Urea Nitrogen 35 mg/dl (9-20); Calcium 10.0 mg/dl (8.4-10.2); Carbon Dioxide 29 mmol/L (22-30); Chloride 106 mmol/L (98-107); Glucose 82 mg/dl (70-99); HDL Cholesterol 36 mg/dl; LDL Cholesterol, Calculated 75 mg/dl; Potassium 5.0 mmol/L (3.5-5.1); Sodium 141 mmol/L (135-145); Total Protein 6.3 g/dl (6.3-8.2); Very Low Density Lipoprotein 21 mg/dl (0-30); eGFR 29.54
[2025-02-16 11:44] LABS: Glycohemoglobin (HgbA1c) 5.1 % (4.0-5.6)
== END ==
LOC: REG 10:08
PROVIDERS: ATTENDING PHYSICIAN Internal Medicine Cardiovascular Disease; FAMILY PHYSICIAN Internal Medicine; OTHER PHYSICIAN Dermatology; OTHER PHYSICIAN Specialist; REFERRING PHYSICIAN Specialist
DX: I25.10 Atherosclerotic heart disease of native coronary artery without angina pectoris (principal); I10 Essential (primary) hypertension; E78.2 Mixed hyperlipidemia; E11.22 Type 2 diabetes mellitus with diabetic chronic kidney disease; D64.9 Anemia, unspecified
CPT/HCPCS: 36415; 80053; 80061; 83036; 85025

== ENCOUNTER → 2025-05-21 07:55 | Outpatient (REF) | payer BC, SELFPAY ==
[2025-05-21 10:20] LABS: Hematocrit 36.6 % (39.0-52.0); Hemoglobin 12.0 g/dL (13.0-18.0); Mean Corp Hgb Conc. 32.8 g/dL (33.0-37.0); Mean Corpuscular Volume 93.1 fL (80.0-94.0); Nucleated Red Blood Cells % 0 % (-); Platelet Count 186 10^3/uL (130-400); Red Cell Dist. Width 14.1 % (11.5-14.5)
[2025-05-21 10:45] LABS: Glycohemoglobin (HgbA1c) 5.4 % (4.0-5.9)
[2025-05-21 10:47] LABS: ALT (SGPT) 21 U/L (0-50); AST (SGOT) 23 U/L (17-59); Albumin 4.4 g/dl (3.5-5.0); Alkaline Phosphatase 66 U/L (38-126); Blood Urea Nitrogen 38 mg/dl (9-20); Calcium 9.8 mg/dl (8.4-10.2); Carbon Dioxide 29 mmol/L (22-30); Chloride 105 mmol/L (98-107); Glucose 90 mg/dl (70-99); HDL Cholesterol 43 mg/dl; Iron 104 ug/dl (49-181); LDL Cholesterol, Calculated 71 mg/dl; Potassium 5.0 mmol/L (3.5-5.1); Sodium 141 mmol/L (135-145); Total Protein 6.9 g/dl (6.3-8.2); Very Low Density Lipoprotein 26 mg/dl (0-30); eGFR 28.00
[2025-05-21 10:49] LABS: Vitamin D, 25-OH*** 42.1 ng/mL (30-80)
[2025-05-21 10:57] LABS: Total Iron Binding Capacity 340 ug/dl (261-462)
[2025-05-21 12:09] LABS: Microalb - Urine Creatinine 122.300 mg/dl
[2025-05-21 12:12] LABS: Microalbumin, Random Urine 3.3 mg/dl (0.6-1.7)
== END ==
LOC: REG 07:55
PROVIDERS: ATTENDING PHYSICIAN Specialist; FAMILY PHYSICIAN Internal Medicine; OTHER PHYSICIAN Dermatology; REFERRING PHYSICIAN Internal Medicine Cardiovascular Disease
DX: N18.4 Chronic kidney disease, stage 4 (severe) (principal); I10 Essential (primary) hypertension; I25.10 Atherosclerotic heart disease of native coronary artery without angina pectoris; E78.2 Mixed hyperlipidemia; E66.01 Morbid (severe) obesity due to excess calories; E11.22 Type 2 diabetes mellitus with diabetic chronic kidney disease; N18.32 Chronic kidney disease, stage 3b; D64.9 Anemia, unspecified
CPT/HCPCS: 36415; 80053; 80061; 82043; 82306; 82570; 83036; 83540; 83550; 83970; 84100; 84156; 85025